=== PATIENT | female | born 1955 | race African-American/Black ===

== ENCOUNTER 2016-11-18 20:25 | Emergency (ER) | payer MEDICAID ==
[~2016-11-18] VITALS: Ht 167.6 cm; Wt 59.0 kg
[~2016-11-18 20:25] MED LIST: LEVO500T15 PO; LOSA100T11 PO; Nifedipine PO; P20 PO
[2016-11-18] MEDS ORDERED: IPRATROPIUM BROMIDE (0.02%) 0.5MG/2.5ML NEB HHN ONE (21:00)
[2016-11-18] MEDS ORDERED: ALBUTEROL 2MG/5ML ORAL SYR PO ONE (21:00)
[2016-11-18] MEDS ORDERED: ALBUTEROL (0.5%) 2.5MG/0.5ML NEB HHN ONE (21:12)
[2016-11-19] MEDS ORDERED: ALBUTEROL (0.083%) 2.5MG/3ML NEB HHN ONE (00:30)
[2016-11-19] MEDS ORDERED: IPRATROPIUM/ALBUTEROL 0.5-3(2.5)MG/3ML NEB HHN ONE (09:15)
[2016-11-19 10:43] VITALS: BP 142/87
== END 2016-11-19 10:51 | disposition home or self-care (01) ==
LOC: ER 20:25
DX: J45.901 Unspecified asthma with (acute) exacerbation (principal); J18.9 Pneumonia, unspecified organism; J44.9 Chronic obstructive pulmonary disease, unspecified
CPT/HCPCS: 94640; 99284; J7611; Z7610; J7620

== ENCOUNTER 2017-10-31 11:33 | Emergency (ER) | payer SELFPAY ==
[~2017-10-31] VITALS: Ht 162.6 cm; Wt 55.0 kg
[~2017-10-31 11:33] MED LIST changes: -LEVO500T15 PO; +LEVO500T2 PO; -LOSA100T11 PO; +LOSA100T3 PO
[2017-10-31] MEDS ORDERED: ALBUTEROL (0.083%) 2.5MG/3ML NEB HHN STA (11:54)
[2017-10-31] MEDS ORDERED: IPRATROPIUM BROMIDE (0.02%) 0.5MG/2.5ML NEB HHN STA (11:54)
[2017-10-31] MEDS ORDERED: PREDNISONE 20MG TABLET PO STA (11:54)
[2017-10-31 16:04] VITALS: BP 137/88
== END 2017-10-31 16:16 | disposition home or self-care (01) ==
LOC: ER 11:33
DX: J44.1 Chronic obstructive pulmonary disease with (acute) exacerbation (principal)
CPT/HCPCS: 71045; 99283; J7512; Z7610

== ENCOUNTER 2018-09-04 19:12 | Inpatient (IN) | payer MEDICAID, OTHER ==
[~2018-09-04] VITALS: Ht 162.6 cm; Wt 69.4 kg
[2018-09-04] MEDS ORDERED: ALBUTEROL (0.083%) 2.5MG/3ML NEB HHN STA (19:17)
[2018-09-04] MEDS ORDERED: METHYLPREDNISOLONE SOD SUCC 125 MG/2 ML VIAL IV STA (19:17)
[2018-09-04 20:29] LABS: BASOPHILS % 0.6 % (0.0-2.0); EOSINOPHILS % 0.4 % (0.0-5.0); HEMATOCRIT. 52.4 % (36.0-48.0); HEMOGLOBIN. 16.8 g/dL (12.0-16.0); MEAN CORPUSCULAR HEMOGLOBIN 31.6 pg (28.0-32.0); MEAN CORPUSCULAR VOLUME 98.5 fL (81.0-99.0); MONOCYTES % 5.9 % (2.0-8.0); NEUTROPHILS % 86.1 % (40.0-76.0); RED BLOOD CELL COUNT 5.32 mill/uL (4.2-5.4); RED CELL DISTRIBUTION WIDTH 14.9 % (11.6-14.6)
[2018-09-04 20:36] LABS: CHLORIDE 102 mEq/L (98-107)
[2018-09-04 20:40] LABS: PROTHROMBIN TIME 9.8 sec (9.1-11.1)
[2018-09-04] MEDS ORDERED: LORAZEPAM 2MG/ML CPJ IV PRN (21:45)
[2018-09-04] MEDS ORDERED: GUAIFENESIN 200MG/10ML SUGAR FREE UDC PO PRN (21:45)
[2018-09-04] MEDS ORDERED: CLONIDINE 0.1MG TABLET PO PRN (21:45)
[2018-09-04] MEDS ORDERED: ACETAMINOPHEN 325MG TABLET PO PRN (21:45)
[2018-09-04] MEDS ORDERED: DOCUSATE SODIUM 100MG CAPSULE PO PRN (21:45)
[2018-09-04] MEDS ORDERED: MAGNESIUM/ALUMINUM HYDROXIDE/SIMETHICONE 30ML UDC PO PRN (21:45)
[2018-09-04] MEDS ORDERED: ONDANSETRON HCL 4MG/2ML INJ IV PRN (21:45)
[2018-09-04] MEDS ORDERED: HYDROCODONE/ACETAMINOPHEN 10/325MG TABLET PO PRN (21:45)
[2018-09-04] MEDS ORDERED: IPRATROPIUM/ALBUTEROL 0.5-3(2.5)MG/3ML NEB INH PRN (21:45)
[2018-09-04] MEDS ORDERED: DIPHENHYDRAMINE 50MG/ML VIAL IV PRN (21:45)
[2018-09-04 23:00] VITALS: BP 156/79
[2018-09-04] MEDS ORDERED: HYDROMORPHONE HCL/PF 2MG/ML CPJ IV PRN (23:07)
[2018-09-04] MEDS ORDERED: NA PHOS,M-B/NA PHOS,DI-BA ENEMA 118ML PR PRN (23:07)
[2018-09-04] MEDS ORDERED: HYDRALAZINE 20MG/ML VIAL IV PRN (23:08)
[2018-09-04 23:55] LABS: CREATINE KINASE 372 IU/L (26-192)
[2018-09-04 23:56] LABS: CREATINE KINASE MB FRACTION 9.3 ng/mL (0.5-3.6)
[2018-09-05] VITALS (9 sets, daily range): BP systolic 146–184; BP diastolic 89–118
[2018-09-05] MEDS: METHYLPREDNISOLONE SOD SUCC 125 MG/2 ML VIAL IV SCH ×3 (06:18→13:09)
[2018-09-05 09:48] LABS: HEMATOCRIT. 42.3 % (36.0-48.0); HEMOGLOBIN. 13.5 g/dL (12.0-16.0); MEAN CORPUSCULAR HEMOGLOBIN 31.3 pg (28.0-32.0); MEAN CORPUSCULAR VOLUME 98.1 fL (81.0-99.0); RED BLOOD CELL COUNT 4.31 mill/uL (4.2-5.4); RED CELL DISTRIBUTION WIDTH 14.8 % (11.6-14.6)
[2018-09-05 09:51] LABS: CHLORIDE 105 mEq/L (98-107)
[2018-09-05 10:02] LABS: CREATINE KINASE 267 IU/L (26-192); LDL CHOLESTEROL 78 mg/dL (5-100)
[2018-09-05 10:03] LABS: HDL CHOLESTEROL 90 mg/dL (40-59); T4 FREE 1.11 ng/dL (0.76-1.46)
[2018-09-05] MEDS: ASPIRIN 81MG EC TABLET PO SCH (10:33)
[2018-09-05] MEDS: ENOXAPARIN 40MG/0.4ML SYR SUBCUT SCH (10:34)
[2018-09-05 11:01] LABS: PLATELET ESTIMATE SLIGHTLY DECREASED
[2018-09-05 11:02] LABS: PLATELET 122 x1000/uL (130-400)
[2018-09-05] MEDS: NICOTINE 14MG PATCH TD SCH (17:22)
[2018-09-05] MEDS: IPRATROPIUM/ALBUTEROL 0.5-3(2.5)MG/3ML NEB HHN SCH (20:55)
[2018-09-05] MEDS: GUAIFENESIN 600MG ER TABLET PO SCH (20:59)
[2018-09-05] MEDS: METHYLPREDNISOLONE SOD SUCC 40 MG/ML VIAL IV SCH (20:59)
[2018-09-05] MEDS: SODIUM CHLORIDE 0.9% INJ 3ML FLUSH IVF SCH (23:53)
[2018-09-06] VITALS: BP 147/92
[2018-09-06] MEDS: IPRATROPIUM/ALBUTEROL 0.5-3(2.5)MG/3ML NEB HHN SCH (01:40)
[2018-09-06 04:00] VITALS: BP 153/96
[2018-09-06] MEDS: METHYLPREDNISOLONE SOD SUCC 40 MG/ML VIAL IV SCH ×2 (06:00→14:00)
[2018-09-06] MEDS: SODIUM CHLORIDE 0.9% INJ 3ML FLUSH IVF SCH ×2 (06:00→14:00)
[2018-09-06 08:00] VITALS: BP 146/71
[2018-09-06 08:49] LABS: CLARITY URINE TURBID (CLEAR); COLOR URINE YELLOW (YELLOW); KETONES URINE NEGATIVE (NEGATIVE); LEUKOCYTE ESTERASE URINE 3+ (NEGATIVE); NITRITE URINE POSITIVE (NEGATIVE); OCCULT BLOOD URINE 2+ (NEGATIVE); PH URINE 7.5 (4.5-8.0); PROTEIN URINE 2+ (NEGATIVE); SPECIFIC GRAVITY URINE 1.026 (1.005-1.030); UROBILINOGEN URINE 0.2 E.U./dL (0.2-1.0)
[2018-09-06] MEDS: ASPIRIN 81MG EC TABLET PO SCH (09:13)
[2018-09-06] MEDS: GUAIFENESIN 600MG ER TABLET PO SCH (09:13)
[2018-09-06] MEDS: ENOXAPARIN 40MG/0.4ML SYR SUBCUT SCH (09:14)
[2018-09-06] MEDS: NICOTINE 14MG PATCH TD SCH (09:14)
[2018-09-06 09:41] LABS: *AMPHETAMINES SCREEN URINE NEGATIVE (NEGATIVE); *BENZODIAZEPINES SCREEN URINE NEGATIVE (NEGATIVE)
[2018-09-06 09:45] LABS: *COCAINE SCREEN URINE PRESUMTIVE POSITIVE (NEGATIVE); CANNABINOID URINE SCREEN NEGATIVE (NEGATIVE); OPIATES URINE SCREEN NEGATIVE (NEGATIVE)
[2018-09-06 09:49] LABS: *BARBITURATES SCREEN URINE NEGATIVE (NEGATIVE); METHADONE URINE SCREEN NEGATIVE (NEGATIVE); PHENCYCLIDINE URINE SCREEN NEGATIVE (NEGATIVE)
[2018-09-06 12:00] VITALS: BP 143/89
== END 2018-09-06 16:35 | disposition home or self-care (01) | DRG 140 ==
LOC: ER 19:12 → 7WST 21:12 → EDBEDREQ 21:14 → ENRESERV 21:50
PROVIDERS: ADMIT Internal Medicine; ATTEND Internal Medicine
PROC: 5A09357 Assistance with Respiratory Ventilation, Less than 24 Consecutive Hours, Continuous Positive Airway Pressure (ICD-10-PCS; principal; 2018-09-04)
DX: J44.1 Chronic obstructive pulmonary disease with (acute) exacerbation (principal); J96.00 Acute respiratory failure, unspecified whether with hypoxia or hypercapnia; I11.9 Hypertensive heart disease without heart failure; F14.90 Cocaine use, unspecified, uncomplicated; F17.210 Nicotine dependence, cigarettes, uncomplicated; J45.901 Unspecified asthma with (acute) exacerbation; N39.0 Urinary tract infection, site not specified; Z98.2 Presence of cerebrospinal fluid drainage device; Z79.2 Long term (current) use of antibiotics; Z79.899 Other long term (current) drug therapy; Z71.6 Tobacco abuse counseling; Z59.0 Homelessness
CPT/HCPCS: 36415; 71045; 80061; 80305; 82550; 82553; 83880; 84439; 84443; 84484; 87077; 87186; 93005; 93970; 94640; 94660; 96374; 99291; J1650; J2920; J2930; J7611; J7620

== ENCOUNTER 2018-09-20 05:55 | Inpatient (IN) | payer OTHER, MEDICAID ==
[~2018-09-20] VITALS: Ht 165.1 cm; Wt 56.7 kg
[~2018-09-20 05:55] MED LIST changes: -LEVO500T2 PO
[2018-09-20] MEDS ORDERED: IPRATROPIUM BROMIDE (0.02%) 0.5MG/2.5ML NEB HHN STA (06:52)
[2018-09-20] MEDS ORDERED: ALBUTEROL (0.083%) 2.5MG/3ML NEB HHN STA (06:52)
[2018-09-20] MEDS ORDERED: METHYLPREDNISOLONE SOD SUCC 125 MG/2 ML VIAL IV STA (06:52)
[2018-09-20 07:23] LABS: BASOPHILS % 0.4 % (0.0-2.0); EOSINOPHILS % 0.3 % (0.0-5.0); HEMATOCRIT. 44.2 % (36.0-48.0); LYMPHOCYTES % 10.3 % (20.0-50.0); MEAN CORPUSCULAR VOLUME 97.9 fL (81.0-99.0); MEAN PLATELET VOLUME 10.9 fl (7.4-10.4); MONOCYTES % 6.2 % (2.0-8.0); NEUTROPHILS % 82.8 % (40.0-76.0); PLATELET 147 x1000/uL (130-400); RED BLOOD CELL COUNT 4.52 mill/uL (4.2-5.4); RED CELL DISTRIBUTION WIDTH 14.4 % (11.6-14.6)
[2018-09-20 07:25] LABS: CHLORIDE 103 mEq/L (98-107)
[2018-09-20 09:12] LABS: BG BASE EXCESS 13.7 mmol/L (-2.0-2.0); BG CARBOXYHEMOGLOBIN 0.9 % (0.5-1.5); BG DEOXYHEMOGLOBIN 13.4 % (0.0-5.0); BG HCO3 ACT 47.5 mmol/L (22.0-26.0); BG METHEMOGLOBIN 0.3 % (0.0-1.5); BG OXYGEN SATURATION 86.4 % (92.0-98.5); BG OXYHEMOGLOBIN 85.4 % (94.0-97.0); BG PCO2 118.7 mmHg (35.0-45.0); BG PO2 63.4 mmHg (75.0-100.0); BG SAMPLE SITE RIGHT RADIAL; BG TOTAL HEMOGLOBIN 15.1 g/dL (12.0-18.0)
[2018-09-20 09:20] LABS: CLARITY URINE CLOUDY (CLEAR); COLOR URINE YELLOW (YELLOW); KETONES URINE NEGATIVE (NEGATIVE); LEUKOCYTE ESTERASE URINE 2+ (NEGATIVE); NITRITE URINE NEGATIVE (NEGATIVE); OCCULT BLOOD URINE 2+ (NEGATIVE); PROTEIN URINE 2+ (NEGATIVE); SPECIFIC GRAVITY URINE 1.016 (1.005-1.030); UROBILINOGEN URINE 0.2 E.U./dL (0.2-1.0)
[2018-09-20] MEDS ORDERED: LEVOFLOXACIN 750MG PREMIX 150 ML IV ONE (09:45)
[2018-09-20] MEDS ORDERED: IPRATROPIUM/ALBUTEROL 0.5-3(2.5)MG/3ML NEB HHN PRN (10:45)
[2018-09-20 11:06] LABS: BG BASE EXCESS 4.4 mmol/L (-2.0-2.0); BG BILEVEL POS AIRWAY PRESSURE 18/5; BG CARBOXYHEMOGLOBIN 0.8 % (0.5-1.5); BG DEOXYHEMOGLOBIN 2.3 % (0.0-5.0); BG FRACTION INSPIRED OXYGEN 40; BG HCO3 ACT 33.9 mmol/L (22.0-26.0); BG METHEMOGLOBIN 0.4 % (0.0-1.5); BG OXYGEN SATURATION 97.7 % (92.0-98.5); BG OXYHEMOGLOBIN 96.5 % (94.0-97.0); BG PCO2 75.7 mmHg (35.0-45.0); BG PH 7.269 (7.350-7.450); BG PO2 120.3 mmHg (75.0-100.0); BG SAMPLE SITE RIGHT RADIAL; BG VENT MODE MASK - BIPAP
[2018-09-20] MEDS ORDERED: ONDANSETRON HCL 4MG/2ML INJ IV PRN (12:30)
[2018-09-20] MEDS ORDERED: LORAZEPAM 0.5MG TABLET PO PRN (12:30)
[2018-09-20] MEDS ORDERED: MAGNESIUM/ALUMINUM HYDROXIDE/SIMETHICONE 30ML UDC PO PRN (12:30)
[2018-09-20] MEDS ORDERED: DOCUSATE SODIUM 100MG CAPSULE PO PRN (12:30)
[2018-09-20] MEDS ORDERED: NITROGLYCERIN 0.4MG TABLET SL SL PRN (12:30)
[2018-09-20] MEDS ORDERED: KETOROLAC 15MG/ML VIAL IV PRN (12:30)
[2018-09-20] MEDS ORDERED: NA PHOS,M-B/NA PHOS,DI-BA ENEMA 118ML PR PRN (12:30)
[2018-09-20] MEDS ORDERED: ETOMIDATE 2MG/ML 10ML VIAL IV ONE (13:56)
[2018-09-20] MEDS ORDERED: SUCCINYLCHOLINE CHLORIDE 200MG/10ML IV ONE ×2 (13:56→14:00)
[2018-09-20] MEDS ORDERED: PROPOFOL 10MG/ML 100ML 100 ML IV ONE (14:00)
[2018-09-20 16:13] LABS: BG BASE EXCESS 5.9 mmol/L (-2.0-2.0); BG CARBOXYHEMOGLOBIN 0.3 % (0.5-1.5); BG DEOXYHEMOGLOBIN 0.5 % (0.0-5.0); BG HCO3 ACT 32.3 mmol/L (22.0-26.0); BG METHEMOGLOBIN 0.3 % (0.0-1.5); BG OXYGEN SATURATION 99.5 % (92.0-98.5); BG OXYHEMOGLOBIN 98.9 % (94.0-97.0); BG PCO2 53.8 mmHg (35.0-45.0); BG PH 7.396 (7.350-7.450); BG PO2 299.9 mmHg (75.0-100.0); BG SAMPLE SITE RIGHT BRACHIAL; BG TIDAL VOLUME(mL) 500 mL; BG TOTAL HEMOGLOBIN 13.9 g/dL (12.0-18.0); BG VENT MODE VENT - A/C; BG VENT RATE 18 set
[2018-09-20] MEDS ORDERED: FENTANYL CITRATE/PF 500 MCG in SODIUM CHLORIDE 0.9% 40 ML IV PRN (16:15)
[2018-09-20] MEDS: FENTANYL CITRATE/PF 500 MCG in SODIUM CHLORIDE 0.9% 40 ML IV PRN (17:00)
[2018-09-20 19:05] LABS: *AMPHETAMINES SCREEN URINE NEGATIVE (NEGATIVE); *BARBITURATES SCREEN URINE NEGATIVE (NEGATIVE); *BENZODIAZEPINES SCREEN URINE NEGATIVE (NEGATIVE); *COCAINE SCREEN URINE PRESUMTIVE POSITIVE (NEGATIVE); CANNABINOID URINE SCREEN NEGATIVE (NEGATIVE); METHADONE URINE SCREEN NEGATIVE (NEGATIVE); OPIATES URINE SCREEN NEGATIVE (NEGATIVE); PHENCYCLIDINE URINE SCREEN NEGATIVE (NEGATIVE)
[2018-09-20 20:00] VITALS: BP_SYST 153; BP_SYST 168; BP_DIAS 109
[2018-09-20] MEDS: IPRATROPIUM/ALBUTEROL 0.5-3(2.5)MG/3ML NEB HHN SCH (20:06)
[2018-09-20] MEDS: METHYLPREDNISOLONE SOD SUCC 125 MG/2 ML VIAL IV SCH (20:26)
[2018-09-20] MEDS: NICOTINE 14MG PATCH TD SCH (20:26)
[2018-09-20] MEDS: GUAIFENESIN/DM 600MG/30MG ER TAB 12HR PO SCH (20:27)
[2018-09-20] MEDS: ENOXAPARIN 40MG/0.4ML SYR SUBCUT SCH (20:27)
[2018-09-20] MEDS: DILTIAZEM HCL 60MG TABLET PO SCH (20:27)
[2018-09-20 21:00] VITALS: BP 150/99
[2018-09-20] MEDS ORDERED: LEVOFLOXACIN 500MG PREMIX 100 ML IV SCH (21:00)
[2018-09-20] MEDS ORDERED: ZOLPIDEM TARTRATE 5MG TABLET PO PRN (21:00)
[2018-09-20] MEDS: ACETAMINOPHEN 325MG TABLET PO PRN (21:22)
[2018-09-20 22:00] VITALS: BP 138/91
[2018-09-20] MEDS: PROPOFOL 10MG/ML 100ML 100 ML IV PRN (22:02)
[2018-09-20 23:00] VITALS: BP 155/101
[2018-09-20 23:30] VITALS: BP 157/104
[2018-09-21] VITALS (45 sets, daily range): BP systolic 104–178; BP diastolic 57–121
[2018-09-21] MEDS: IPRATROPIUM/ALBUTEROL 0.5-3(2.5)MG/3ML NEB HHN SCH ×6 (00:16→20:18)
[2018-09-21] MEDS: DILTIAZEM HCL 60MG TABLET PO SCH ×4 (01:34→20:00)
[2018-09-21] MEDS: ACETAMINOPHEN 325MG TABLET PO PRN (01:34)
[2018-09-21] MEDS: METHYLPREDNISOLONE SOD SUCC 125 MG/2 ML VIAL IV SCH ×4 (01:34→20:43)
[2018-09-21] MEDS: GUAIFENESIN 600MG ER TABLET PO SCH ×3 (01:47→20:43)
[2018-09-21] MEDS: PROPOFOL 10MG/ML 100ML 100 ML IV PRN ×4 (04:27→20:45)
[2018-09-21] MEDS: NICOTINE 14MG PATCH TD SCH ×2 (08:14→20:43)
[2018-09-21] MEDS: GUAIFENESIN/DM 600MG/30MG ER TAB 12HR PO SCH ×2 (08:15→20:42)
[2018-09-21] MEDS: ASPIRIN 325MG EC TABLET PO SCH (08:15)
[2018-09-21 08:31] LABS: BG BASE EXCESS 10.1 mmol/L (-2.0-2.0); BG CARBOXYHEMOGLOBIN 0.3 % (0.5-1.5); BG DEOXYHEMOGLOBIN 1.7 % (0.0-5.0); BG FRACTION INSPIRED OXYGEN 40; BG HCO3 ACT 34.3 mmol/L (22.0-26.0); BG METHEMOGLOBIN 0.3 % (0.0-1.5); BG OXYGEN SATURATION 98.3 % (92.0-98.5); BG OXYHEMOGLOBIN 97.7 % (94.0-97.0); BG PCO2 44.3 mmHg (35.0-45.0); BG PH 7.507 (7.350-7.450); BG PO2 112.6 mmHg (75.0-100.0); BG SAMPLE SITE RIGHT RADIAL; BG TIDAL VOLUME(mL) 500 mL; BG TOTAL HEMOGLOBIN 13.5 g/dL (12.0-18.0); BG VENT MODE VENT - A/C; BG VENT RATE 16 set
[2018-09-21] MEDS: FENTANYL CITRATE/PF 500 MCG in SODIUM CHLORIDE 0.9% 40 ML IV PRN (12:33)
[2018-09-21] MEDS: PANTOPRAZOLE SODIUM 40 MG/VIAL IV SCH (13:05)
[2018-09-21] MEDS: LISINOPRIL 20MG TABLET PO SCH (13:06)
[2018-09-21] MEDS: ENOXAPARIN 40MG/0.4ML SYR SUBCUT SCH (20:44)
[2018-09-21] MEDS ORDERED: LEVOFLOXACIN 500MG PREMIX 100 ML IV SCH (22:00)
[2018-09-22] VITALS (41 sets, daily range): BP systolic 105–156; BP diastolic 66–101
[2018-09-22] MEDS: IPRATROPIUM/ALBUTEROL 0.5-3(2.5)MG/3ML NEB HHN SCH ×6 (00:09→21:10)
[2018-09-22] MEDS: DILTIAZEM HCL 60MG TABLET PO SCH ×4 (02:42→20:47)
[2018-09-22] MEDS: METHYLPREDNISOLONE SOD SUCC 125 MG/2 ML VIAL IV SCH ×4 (02:43→20:46)
[2018-09-22] MEDS: PROPOFOL 10MG/ML 100ML 100 ML IV PRN ×3 (04:03→23:26)
[2018-09-22 07:56] LABS: BG BASE EXCESS 9.7 mmol/L (-2.0-2.0); BG CARBOXYHEMOGLOBIN 0.2 % (0.5-1.5); BG DEOXYHEMOGLOBIN 2.3 % (0.0-5.0); BG FRACTION INSPIRED OXYGEN 40; BG HCO3 ACT 35.3 mmol/L (22.0-26.0); BG METHEMOGLOBIN 0.1 % (0.0-1.5); BG OXYGEN SATURATION 97.7 % (92.0-98.5); BG OXYHEMOGLOBIN 97.4 % (94.0-97.0); BG PCO2 51.9 mmHg (35.0-45.0); BG PH 7.451 (7.350-7.450); BG PO2 102.6 mmHg (75.0-100.0); BG SAMPLE SITE RIGHT RADIAL; BG TIDAL VOLUME(mL) 500 mL; BG TOTAL HEMOGLOBIN 13.3 g/dL (12.0-18.0); BG VENT MODE VENT - A/C; BG VENT RATE 12 set
[2018-09-22 07:57] LABS: HEMATOCRIT. 39.6 % (36.0-48.0); HEMOGLOBIN. 12.6 g/dL (12.0-16.0); MEAN CORPUSCULAR HEMOGLOBIN 30.9 pg (28.0-32.0); MEAN CORPUSCULAR VOLUME 97.4 fL (81.0-99.0); MEAN PLATELET VOLUME 11.1 fl (7.4-10.4); PLATELET 156 x1000/uL (130-400); RED BLOOD CELL COUNT 4.07 mill/uL (4.2-5.4); RED CELL DISTRIBUTION WIDTH 14.6 % (11.6-14.6)
[2018-09-22] MEDS: PANTOPRAZOLE SODIUM 40 MG/VIAL IV SCH (08:14)
[2018-09-22] MEDS: GUAIFENESIN 600MG ER TABLET PO SCH ×2 (08:14→21:00)
[2018-09-22] MEDS: LISINOPRIL 20MG TABLET PO SCH (08:14)
[2018-09-22] MEDS: ASPIRIN 325MG EC TABLET PO SCH (08:14)
[2018-09-22] MEDS: GUAIFENESIN/DM 600MG/30MG ER TAB 12HR PO SCH ×2 (08:15→21:00)
[2018-09-22 10:09] LABS: PLATELET ESTIMATE NORMAL
[2018-09-22 13:52] LABS: BG BASE EXCESS 6.1 mmol/L (-2.0-2.0); BG CARBOXYHEMOGLOBIN 0.4 % (0.5-1.5); BG DEOXYHEMOGLOBIN 3.2 % (0.0-5.0); BG FRACTION INSPIRED OXYGEN 40; BG HCO3 ACT 32.3 mmol/L (22.0-26.0); BG METHEMOGLOBIN 0.4 % (0.0-1.5); BG OXYGEN SATURATION 96.8 % (92.0-98.5); BG PCO2 53.1 mmHg (35.0-45.0); BG PH 7.402 (7.350-7.450); BG PO2 95.1 mmHg (75.0-100.0); BG PRESSURE SUPPORT 14; BG SAMPLE SITE RIGHT RADIAL; BG TIDAL VOLUME(mL) 500 mL; BG TOTAL HEMOGLOBIN 13.3 g/dL (12.0-18.0); BG VENT MODE VENT - SIMV; BG VENT RATE 8 set
[2018-09-22] MEDS: ENOXAPARIN 30MG/0.3ML SYR SUBCUT SCH (20:47)
[2018-09-22] MEDS ORDERED: LEVOFLOXACIN 250MG PREMIX 50 ML IV SCH (22:00)
[2018-09-23] VITALS (38 sets, daily range): BP systolic 107–164; BP diastolic 57–115
[2018-09-23] MEDS: IPRATROPIUM/ALBUTEROL 0.5-3(2.5)MG/3ML NEB HHN SCH ×6 (00:23→20:22)
[2018-09-23] MEDS: METHYLPREDNISOLONE SOD SUCC 125 MG/2 ML VIAL IV SCH ×4 (02:54→21:19)
[2018-09-23] MEDS: DILTIAZEM HCL 60MG TABLET PO SCH ×4 (02:54→21:19)
[2018-09-23 07:01] LABS: BG BASE EXCESS 5.8 mmol/L (-2.0-2.0); BG CARBOXYHEMOGLOBIN 0.2 % (0.5-1.5); BG DEOXYHEMOGLOBIN 3.2 % (0.0-5.0); BG HCO3 ACT 32.7 mmol/L (22.0-26.0); BG METHEMOGLOBIN 0.4 % (0.0-1.5); BG OXYGEN SATURATION 96.8 % (92.0-98.5); BG OXYHEMOGLOBIN 96.2 % (94.0-97.0); BG PCO2 57.9 mmHg (35.0-45.0); BG PO2 95.1 mmHg (75.0-100.0); BG SAMPLE SITE RIGHT RADIAL; BG TIDAL VOLUME(mL) 500 mL; BG TOTAL HEMOGLOBIN 13.5 g/dL (12.0-18.0); BG VENT MODE VENT - SIMV; BG VENT RATE 8 set
[2018-09-23 09:17] LABS: HEMATOCRIT. 41.2 % (36.0-48.0); HEMOGLOBIN. 13.2 g/dL (12.0-16.0); MEAN CORPUSCULAR HEMOGLOBIN 31.2 pg (28.0-32.0); MEAN CORPUSCULAR VOLUME 97.6 fL (81.0-99.0); MEAN PLATELET VOLUME 10.2 fl (7.4-10.4); PLATELET 137 x1000/uL (130-400); RED BLOOD CELL COUNT 4.23 mill/uL (4.2-5.4); RED CELL DISTRIBUTION WIDTH 14.8 % (11.6-14.6)
[2018-09-23] MEDS: PANTOPRAZOLE SODIUM 40 MG/VIAL IV SCH (09:56)
[2018-09-23] MEDS: NICOTINE 14MG PATCH TD SCH (09:56)
[2018-09-23] MEDS: AMLODIPINE 5MG TABLET PO SCH (09:57)
[2018-09-23] MEDS: PROPOFOL 10MG/ML 100ML 100 ML IV PRN ×2 (10:10→18:37)
[2018-09-23] MEDS ORDERED: LIDOCAINE HCL/PF 1% 2ML VIAL ONE (10:12)
[2018-09-23] MEDS: ASPIRIN 325MG TABLET PO SCH (10:12)
[2018-09-23 11:40] LABS: PLATELET ESTIMATE NORMAL
[2018-09-23 12:08] LABS: CREATINE KINASE MB FRACTION 1.7 ng/mL (0.5-3.6)
[2018-09-23] MEDS: SODIUM CHLORIDE 0.9% 1,000 ML IV SCH ×2 (12:30→23:56)
[2018-09-23] MEDS: GUAIFENESIN-DM 200MG-20MG/10ML UDC NG SCH ×2 (14:00→22:00)
[2018-09-23 14:09] LABS: BG BASE EXCESS 8.6 mmol/L (-2.0-2.0); BG CARBOXYHEMOGLOBIN 0.1 % (0.5-1.5); BG DEOXYHEMOGLOBIN 3.7 % (0.0-5.0); BG FRACTION INSPIRED OXYGEN 40; BG HCO3 ACT 35.4 mmol/L (22.0-26.0); BG METHEMOGLOBIN 0.4 % (0.0-1.5); BG OXYGEN SATURATION 96.3 % (92.0-98.5); BG OXYHEMOGLOBIN 95.8 % (94.0-97.0); BG PCO2 58.5 mmHg (35.0-45.0); BG PO2 92.6 mmHg (75.0-100.0); BG SAMPLE SITE RIGHT RADIAL; BG TIDAL VOLUME(mL) 500 mL; BG TOTAL HEMOGLOBIN 13.4 g/dL (12.0-18.0); BG VENT MODE VENT - SIMV; BG VENT RATE 6 set
[2018-09-23] MEDS: CEFAZOLIN 1000MG PREMIX 50 ML IV SCH (17:25)
[2018-09-23] MEDS: ENOXAPARIN 30MG/0.3ML SYR SUBCUT SCH (21:19)
[2018-09-23] MEDS: GUAIFENESIN 200MG/10ML SUGAR FREE UDC PO PRN ×4 (21:54→22:04)
[2018-09-24] VITALS (42 sets, daily range): BP systolic 108–163; BP diastolic 75–108
[2018-09-24] MEDS: IPRATROPIUM/ALBUTEROL 0.5-3(2.5)MG/3ML NEB HHN SCH ×6 (00:24→20:54)
[2018-09-24] MEDS: DILTIAZEM HCL 60MG TABLET PO SCH ×4 (02:15→19:37)
[2018-09-24] MEDS: PROPOFOL 10MG/ML 100ML 100 ML IV PRN ×3 (03:47→18:38)
[2018-09-24] MEDS: METHYLPREDNISOLONE SOD SUCC 125 MG/2 ML VIAL IV SCH ×2 (05:45→09:48)
[2018-09-24] MEDS: GUAIFENESIN-DM 200MG-20MG/10ML UDC NG SCH ×3 (05:56→21:17)
[2018-09-24] MEDS: NICOTINE 14MG PATCH TD SCH (08:09)
[2018-09-24] MEDS: CEFAZOLIN 1000MG PREMIX 50 ML IV SCH (08:09)
[2018-09-24] MEDS: ASPIRIN 325MG TABLET PO SCH (08:10)
[2018-09-24] MEDS: PANTOPRAZOLE SODIUM 40 MG/VIAL IV SCH (08:10)
[2018-09-24 08:31] LABS: BG BASE EXCESS 9.7 mmol/L (-2.0-2.0); BG CARBOXYHEMOGLOBIN 0.4 % (0.5-1.5); BG DEOXYHEMOGLOBIN 3.2 % (0.0-5.0); BG FRACTION INSPIRED OXYGEN 40; BG HCO3 ACT 38.2 mmol/L (22.0-26.0); BG METHEMOGLOBIN 0.1 % (0.0-1.5); BG OXYGEN SATURATION 96.8 % (92.0-98.5); BG OXYHEMOGLOBIN 96.3 % (94.0-97.0); BG PCO2 71.6 mmHg (35.0-45.0); BG PH 7.345 (7.350-7.450); BG PO2 95.1 mmHg (75.0-100.0); BG PRESSURE SUPPORT 10; BG SAMPLE SITE RIGHT RADIAL; BG TIDAL VOLUME(mL) 500 mL; BG TOTAL HEMOGLOBIN 13.4 g/dL (12.0-18.0); BG VENT MODE VENT - SIMV; BG VENT RATE 8 set
[2018-09-24 09:27] LABS: HEMATOCRIT 39.7 % (36.0-48.0); HEMOGLOBIN 12.6 g/dL (12.0-16.0); MEAN CORPUSCULAR HEMOGLOBIN 31.4 pg (28.0-32.0); PLATELET 161 x1000/uL (130-400); RED BLOOD CELL COUNT 4.01 mill/uL (4.2-5.4)
[2018-09-24] MEDS: AMLODIPINE 5MG TABLET PO SCH (09:48)
[2018-09-24] MEDS: SODIUM CHLORIDE 0.9% 1,000 ML IV SCH (13:46)
[2018-09-24] MEDS: METHYLPREDNISOLONE SOD SUCC 40 MG/ML VIAL IV SCH (17:20)
[2018-09-24] MEDS: ENOXAPARIN 30MG/0.3ML SYR SUBCUT SCH (19:37)
[2018-09-25] VITALS (34 sets, daily range): BP systolic 125–182; BP diastolic 80–117
[2018-09-25] MEDS: SODIUM CHLORIDE 0.9% 1,000 ML IV SCH ×2 (00:02→17:40)
[2018-09-25] MEDS: IPRATROPIUM/ALBUTEROL 0.5-3(2.5)MG/3ML NEB HHN SCH ×6 (00:03→20:28)
[2018-09-25] MEDS: PROPOFOL 10MG/ML 100ML 100 ML IV PRN (03:15)
[2018-09-25] MEDS: DILTIAZEM HCL 60MG TABLET PO SCH ×4 (03:18→20:49)
[2018-09-25] MEDS: GUAIFENESIN-DM 200MG-20MG/10ML UDC NG SCH ×3 (05:21→20:49)
[2018-09-25 07:20] LABS: BG BASE EXCESS 4.2 mmol/L (-2.0-2.0); BG CARBOXYHEMOGLOBIN 0.6 % (0.5-1.5); BG DEOXYHEMOGLOBIN 3.7 % (0.0-5.0); BG HCO3 ACT 30.8 mmol/L (22.0-26.0); BG METHEMOGLOBIN 0.3 % (0.0-1.5); BG OXYGEN SATURATION 96.3 % (92.0-98.5); BG OXYHEMOGLOBIN 95.4 % (94.0-97.0); BG PCO2 54.8 mmHg (35.0-45.0); BG PH 7.367 (7.350-7.450); BG PO2 88.5 mmHg (75.0-100.0); BG SAMPLE SITE RIGHT RADIAL; BG TIDAL VOLUME(mL) 500 mL; BG TOTAL HEMOGLOBIN 12.9 g/dL (12.0-18.0); BG VENT MODE VENT - A/C; BG VENT RATE 12 set
[2018-09-25 08:56] LABS: HEMATOCRIT 38.7 % (36.0-48.0); MEAN CORPUSCULAR HEMOGLOBIN 30.6 pg (28.0-32.0); MEAN CORPUSCULAR VOLUME 98.8 fL (81.0-99.0); PLATELET 135 x1000/uL (130-400); RED BLOOD CELL COUNT 3.92 mill/uL (4.2-5.4)
[2018-09-25 09:03] LABS: CHLORIDE 114 mEq/L (98-107)
[2018-09-25] MEDS: NICOTINE 14MG PATCH TD SCH (09:18)
[2018-09-25] MEDS: AMLODIPINE 5MG TABLET PO SCH (09:19)
[2018-09-25] MEDS: PANTOPRAZOLE SODIUM 40 MG/VIAL IV SCH (09:19)
[2018-09-25] MEDS: ASPIRIN 325MG TABLET PO SCH (09:19)
[2018-09-25] MEDS: METHYLPREDNISOLONE SOD SUCC 40 MG/ML VIAL IV SCH ×2 (09:19→17:40)
[2018-09-25] MEDS: CEFAZOLIN 1000MG PREMIX 50 ML IV SCH (09:20)
[2018-09-25 12:01] LABS: BG CARBOXYHEMOGLOBIN 0.3 % (0.5-1.5); BG CPAP (cmH2O) 0 cm(H2O); BG DEOXYHEMOGLOBIN 5.4 % (0.0-5.0); BG HCO3 ACT 30.7 mmol/L (22.0-26.0); BG METHEMOGLOBIN 0.3 % (0.0-1.5); BG OXYGEN SATURATION 94.6 % (92.0-98.5); BG PCO2 49.8 mmHg (35.0-45.0); BG PH 7.408 (7.350-7.450); BG SAMPLE SITE RIGHT RADIAL; BG TOTAL HEMOGLOBIN 13.6 g/dL (12.0-18.0); BG VENT MODE VENT - CPAP
[2018-09-25] MEDS ORDERED: RACEPINEPHRINE 2.25% 0.5ML NEB VIAL HHN PRN (12:15)
[2018-09-25] MEDS: CLONIDINE 0.1MG TABLET PO PRN (12:35)
[2018-09-25] MEDS ORDERED: LIDOCAINE HCL/PF 1% 2ML VIAL ONE (15:09)
[2018-09-25] MEDS: HALOPERIDOL LACTATE 5MG/ML VIAL IM PRN (18:08)
[2018-09-25] MEDS: ENOXAPARIN 30MG/0.3ML SYR SUBCUT SCH (20:50)
[2018-09-25] MEDS: NITROGLYCERIN OINT 1GM/INCH UDPKT TD SCH (20:50)
[2018-09-26] VITALS (16 sets, daily range): BP systolic 138–181; BP diastolic 83–114
[2018-09-26] MEDS: IPRATROPIUM/ALBUTEROL 0.5-3(2.5)MG/3ML NEB HHN SCH ×6 (01:23→20:33)
[2018-09-26] MEDS: DILTIAZEM HCL 60MG TABLET PO SCH ×4 (02:03→21:33)
[2018-09-26] MEDS: SODIUM CHLORIDE 0.9% 1,000 ML IV SCH ×2 (05:06→19:38)
[2018-09-26] MEDS: GUAIFENESIN-DM 200MG-20MG/10ML UDC NG SCH ×2 (05:06→14:59)
[2018-09-26] MEDS: HYDRALAZINE 20MG/ML VIAL IV PRN ×2 (06:28→14:29)
[2018-09-26 07:18] LABS: HEMATOCRIT 40.9 % (36.0-48.0); HEMOGLOBIN 12.7 g/dL (12.0-16.0); MEAN CORPUSCULAR HEMOGLOBIN 30.7 pg (28.0-32.0); MEAN CORPUSCULAR VOLUME 98.5 fL (81.0-99.0); PLATELET 119 x1000/uL (130-400); RED BLOOD CELL COUNT 4.15 mill/uL (4.2-5.4)
[2018-09-26 07:27] LABS: CHLORIDE 108 mEq/L (98-107)
[2018-09-26] MEDS: AMLODIPINE 5MG TABLET PO SCH (08:20)
[2018-09-26] MEDS: ASPIRIN 325MG TABLET PO SCH (08:20)
[2018-09-26] MEDS: METHYLPREDNISOLONE SOD SUCC 40 MG/ML VIAL IV SCH (08:21)
[2018-09-26] MEDS: PANTOPRAZOLE SODIUM 40 MG/VIAL IV SCH (08:21)
[2018-09-26] MEDS: NITROGLYCERIN OINT 1GM/INCH UDPKT TD SCH (08:21)
[2018-09-26] MEDS: NICOTINE 14MG PATCH TD SCH (08:22)
[2018-09-26] MEDS: CEFAZOLIN 1000MG PREMIX 50 ML IV SCH ×2 (08:44→21:33)
[2018-09-26] MEDS: HALOPERIDOL LACTATE 5MG/ML VIAL IM PRN (14:28)
[2018-09-26] MEDS: GUAIFENESIN 200MG/10ML SUGAR FREE UDC PO PRN ×3 (14:30→14:58)
[2018-09-26] MEDS: ACETAMINOPHEN 325MG TABLET PO PRN (14:56)
[2018-09-26 16:35] LABS: BG BASE EXCESS 7.1 mmol/L (-2.0-2.0); BG CARBOXYHEMOGLOBIN 0.2 % (0.5-1.5); BG DEOXYHEMOGLOBIN 3.7 % (0.0-5.0); BG FRACTION INSPIRED OXYGEN 34; BG HCO3 ACT 31.4 mmol/L (22.0-26.0); BG METHEMOGLOBIN 0.3 % (0.0-1.5); BG OXYGEN SATURATION 96.3 % (92.0-98.5); BG OXYHEMOGLOBIN 95.8 % (94.0-97.0); BG PCO2 42.7 mmHg (35.0-45.0); BG PH 7.484 (7.350-7.450); BG PO2 81.3 mmHg (75.0-100.0); BG SAMPLE SITE RIGHT RADIAL; BG TOTAL HEMOGLOBIN 14.3 g/dL (12.0-18.0); BG VENT MODE NASAL CANNULA
[2018-09-26] MEDS: ENOXAPARIN 40MG/0.4ML SYR SUBCUT SCH (21:33)
[2018-09-27] VITALS (12 sets, daily range): BP systolic 130–169; BP diastolic 58–105
[2018-09-27] MEDS: DILTIAZEM HCL 60MG TABLET PO SCH ×4 (01:41→20:43)
[2018-09-27] MEDS: GUAIFENESIN-DM 200MG-20MG/10ML UDC NG SCH ×4 (01:42→20:42)
[2018-09-27] MEDS: IPRATROPIUM/ALBUTEROL 0.5-3(2.5)MG/3ML NEB HHN SCH ×6 (01:48→21:39)
[2018-09-27] MEDS: GUAIFENESIN 200MG/10ML SUGAR FREE UDC PO PRN (05:55)
[2018-09-27] MEDS: AMLODIPINE 5MG TABLET PO SCH (08:41)
[2018-09-27] MEDS: NICOTINE 14MG PATCH TD SCH (08:42)
[2018-09-27] MEDS: FAMOTIDINE 20MG TABLET PO SCH ×2 (08:42→17:22)
[2018-09-27] MEDS: PREDNISONE 20MG TABLET PO SCH (08:42)
[2018-09-27] MEDS: ASPIRIN 325MG TABLET PO SCH (08:42)
[2018-09-27] MEDS: NITROGLYCERIN OINT 1GM/INCH UDPKT TD SCH (08:43)
[2018-09-27] MEDS: CEFAZOLIN 1000MG PREMIX 50 ML IV SCH (08:43)
[2018-09-27] MEDS: SODIUM CHLORIDE 0.9% 1,000 ML IV SCH (08:44)
[2018-09-27] MEDS: CEPHALEXIN 250MG CAPSULE PO SCH ×3 (12:35→22:58)
[2018-09-27] MEDS: HALOPERIDOL LACTATE 5MG/ML VIAL IM PRN (20:41)
[2018-09-27] MEDS: ENOXAPARIN 40MG/0.4ML SYR SUBCUT SCH (20:45)
[2018-09-28] VITALS (11 sets, daily range): BP systolic 113–161; BP diastolic 61–105
[2018-09-28] MEDS: CLONIDINE 0.1MG TABLET PO PRN (00:20)
[2018-09-28] MEDS: IPRATROPIUM/ALBUTEROL 0.5-3(2.5)MG/3ML NEB HHN SCH ×6 (01:27→20:53)
[2018-09-28] MEDS: DILTIAZEM HCL 60MG TABLET PO SCH ×4 (01:44→20:45)
[2018-09-28] MEDS: GUAIFENESIN-DM 200MG-20MG/10ML UDC NG SCH ×3 (05:13→20:44)
[2018-09-28] MEDS: CEPHALEXIN 250MG CAPSULE PO SCH ×3 (05:13→17:20)
[2018-09-28] MEDS: HALOPERIDOL LACTATE 5MG/ML VIAL IM PRN ×2 (05:14→23:21)
[2018-09-28] MEDS: ASPIRIN 325MG TABLET PO SCH (08:32)
[2018-09-28] MEDS: AMLODIPINE 5MG TABLET PO SCH (08:32)
[2018-09-28] MEDS: PREDNISONE 20MG TABLET PO SCH (08:33)
[2018-09-28] MEDS: NICOTINE 14MG PATCH TD SCH (08:34)
[2018-09-28] MEDS: NITROGLYCERIN OINT 1GM/INCH UDPKT TD SCH (08:36)
[2018-09-28] MEDS: FAMOTIDINE 20MG TABLET PO SCH ×2 (08:38→17:20)
[2018-09-28] MEDS: ENOXAPARIN 40MG/0.4ML SYR SUBCUT SCH (20:44)
[2018-09-29] VITALS (10 sets, daily range): BP systolic 114–165; BP diastolic 70–106
[2018-09-29] MEDS: DILTIAZEM HCL 60MG TABLET PO SCH ×4 (03:00→21:20)
[2018-09-29] MEDS: CEPHALEXIN 250MG CAPSULE PO SCH ×5 (03:00→23:46)
[2018-09-29] MEDS: IPRATROPIUM/ALBUTEROL 0.5-3(2.5)MG/3ML NEB HHN SCH ×4 (04:54→21:07)
[2018-09-29] MEDS: GUAIFENESIN-DM 200MG-20MG/10ML UDC NG SCH ×3 (05:15→21:19)
[2018-09-29] MEDS: PREDNISONE 20MG TABLET PO SCH (08:34)
[2018-09-29] MEDS: AMLODIPINE 5MG TABLET PO SCH (08:34)
[2018-09-29] MEDS: NICOTINE 14MG PATCH TD SCH (08:34)
[2018-09-29] MEDS: ASPIRIN 325MG TABLET PO SCH (08:35)
[2018-09-29] MEDS: NITROGLYCERIN OINT 1GM/INCH UDPKT TD SCH (08:35)
[2018-09-29] MEDS: FAMOTIDINE 20MG TABLET PO SCH ×2 (08:36→17:18)
[2018-09-29] MEDS: ENOXAPARIN 40MG/0.4ML SYR SUBCUT SCH (21:19)
[2018-09-29] MEDS: HALOPERIDOL LACTATE 5MG/ML VIAL IM PRN (23:16)
[2018-09-30] VITALS: BP 134/88
[2018-09-30] MEDS: IPRATROPIUM/ALBUTEROL 0.5-3(2.5)MG/3ML NEB HHN SCH ×7 (00:45→20:19)
[2018-09-30] MEDS: DILTIAZEM HCL 60MG TABLET PO SCH ×4 (02:00→20:35)
[2018-09-30 04:00] VITALS: BP 117/79
[2018-09-30] MEDS: GUAIFENESIN-DM 200MG-20MG/10ML UDC NG SCH ×3 (05:54→22:00)
[2018-09-30] MEDS: CEPHALEXIN 250MG CAPSULE PO SCH ×3 (05:55→17:09)
[2018-09-30 08:00] VITALS: BP 129/84
[2018-09-30] MEDS: NICOTINE 14MG PATCH TD SCH (09:08)
[2018-09-30] MEDS: FAMOTIDINE 20MG TABLET PO SCH ×2 (09:09→17:09)
[2018-09-30] MEDS: NITROGLYCERIN OINT 1GM/INCH UDPKT TD SCH (09:09)
[2018-09-30] MEDS: ASPIRIN 325MG TABLET PO SCH (09:09)
[2018-09-30] MEDS: AMLODIPINE 5MG TABLET PO SCH (09:09)
[2018-09-30] MEDS: PREDNISONE 20MG TABLET PO SCH (09:09)
[2018-09-30 12:00] VITALS: BP 131/81
[2018-09-30 16:08] VITALS: BP 140/84
[2018-09-30 20:00] VITALS: BP 141/91
[2018-09-30] MEDS: HALOPERIDOL LACTATE 5MG/ML VIAL IM PRN (20:36)
[2018-09-30] MEDS: ENOXAPARIN 40MG/0.4ML SYR SUBCUT SCH (20:36)
[2018-10-01] VITALS (7 sets, daily range): BP systolic 118–155; BP diastolic 75–84
[2018-10-01] MEDS: IPRATROPIUM/ALBUTEROL 0.5-3(2.5)MG/3ML NEB HHN SCH ×6 (00:47→21:53)
[2018-10-01] MEDS: DILTIAZEM HCL 60MG TABLET PO SCH ×4 (03:12→20:45)
[2018-10-01] MEDS: GUAIFENESIN-DM 200MG-20MG/10ML UDC NG SCH ×3 (06:05→21:03)
[2018-10-01] MEDS: CEPHALEXIN 250MG CAPSULE PO SCH ×5 (06:05→23:01)
[2018-10-01] MEDS: NICOTINE 14MG PATCH TD SCH (09:31)
[2018-10-01] MEDS: ASPIRIN 325MG TABLET PO SCH (09:32)
[2018-10-01] MEDS: NITROGLYCERIN OINT 1GM/INCH UDPKT TD SCH (09:32)
[2018-10-01] MEDS: AMLODIPINE 5MG TABLET PO SCH (09:32)
[2018-10-01] MEDS: FAMOTIDINE 20MG TABLET PO SCH ×2 (09:32→18:17)
[2018-10-01] MEDS: PREDNISONE 20MG TABLET PO SCH (09:34)
[2018-10-01] MEDS: ENOXAPARIN 40MG/0.4ML SYR SUBCUT SCH (20:45)
[2018-10-01] MEDS: HALOPERIDOL LACTATE 5MG/ML VIAL IM PRN (22:58)
[2018-10-02] VITALS (7 sets, daily range): BP systolic 128–163; BP diastolic 71–99
[2018-10-02] MEDS: DILTIAZEM HCL 60MG TABLET PO SCH ×4 (02:06→21:07)
[2018-10-02] MEDS: IPRATROPIUM/ALBUTEROL 0.5-3(2.5)MG/3ML NEB HHN SCH ×6 (02:45→20:52)
[2018-10-02] MEDS: GUAIFENESIN-DM 200MG-20MG/10ML UDC NG SCH ×3 (06:26→22:00)
[2018-10-02] MEDS: CEPHALEXIN 250MG CAPSULE PO SCH ×3 (06:27→18:20)
[2018-10-02] MEDS: NITROGLYCERIN OINT 1GM/INCH UDPKT TD SCH (08:45)
[2018-10-02] MEDS: AMLODIPINE 5MG TABLET PO SCH (08:45)
[2018-10-02] MEDS: NICOTINE 14MG PATCH TD SCH (08:45)
[2018-10-02] MEDS: ASPIRIN 325MG TABLET PO SCH (08:45)
[2018-10-02] MEDS: PREDNISONE 20MG TABLET PO SCH (08:46)
[2018-10-02] MEDS: FAMOTIDINE 20MG TABLET PO SCH ×2 (08:46→18:20)
[2018-10-02] MEDS: HALOPERIDOL LACTATE 5MG/ML VIAL IM PRN (19:52)
[2018-10-02] MEDS: GUAIFENESIN 200MG/10ML SUGAR FREE UDC PO PRN ×2 (21:06→21:08)
[2018-10-02] MEDS: ENOXAPARIN 40MG/0.4ML SYR SUBCUT SCH (21:06)
[2018-10-03] MEDS: IPRATROPIUM/ALBUTEROL 0.5-3(2.5)MG/3ML NEB HHN SCH ×6 (00:45→20:40)
[2018-10-03 04:00] VITALS: BP 158/89
[2018-10-03] MEDS: HALOPERIDOL LACTATE 5MG/ML VIAL IM PRN ×2 (04:20→17:56)
[2018-10-03] MEDS: CEPHALEXIN 250MG CAPSULE PO SCH ×5 (04:24→23:04)
[2018-10-03] MEDS: DILTIAZEM HCL 60MG TABLET PO SCH ×4 (04:27→20:45)
[2018-10-03] MEDS: GUAIFENESIN-DM 200MG-20MG/10ML UDC NG SCH ×3 (06:56→22:00)
[2018-10-03 08:00] VITALS: BP 153/95
[2018-10-03] MEDS: AMLODIPINE 5MG TABLET PO SCH (09:41)
[2018-10-03] MEDS: ASPIRIN 325MG TABLET PO SCH (09:41)
[2018-10-03] MEDS: FAMOTIDINE 20MG TABLET PO SCH ×2 (09:41→17:32)
[2018-10-03] MEDS: PREDNISONE 20MG TABLET PO SCH (09:42)
[2018-10-03] MEDS: NITROGLYCERIN OINT 1GM/INCH UDPKT TD SCH (09:42)
[2018-10-03] MEDS: NICOTINE 14MG PATCH TD SCH (09:43)
[2018-10-03 12:00] VITALS: BP 139/82
[2018-10-03] MEDS: GUAIFENESIN 200MG/10ML SUGAR FREE UDC PO PRN ×2 (14:13→14:14)
[2018-10-03 15:15] VITALS: BP 138/80
[2018-10-03 20:00] VITALS: BP 162/102
[2018-10-03] MEDS: ENOXAPARIN 40MG/0.4ML SYR SUBCUT SCH (20:41)
[2018-10-04] VITALS: BP 167/105
[2018-10-04] MEDS: IPRATROPIUM/ALBUTEROL 0.5-3(2.5)MG/3ML NEB HHN SCH ×6 (00:28→20:48)
[2018-10-04] MEDS: DILTIAZEM HCL 60MG TABLET PO SCH ×4 (02:00→20:42)
[2018-10-04] MEDS: HALOPERIDOL LACTATE 5MG/ML VIAL IM PRN (02:02)
[2018-10-04 04:00] VITALS: BP 154/100
[2018-10-04] MEDS: CEPHALEXIN 250MG CAPSULE PO SCH ×2 (05:56→12:00)
[2018-10-04] MEDS: GUAIFENESIN-DM 200MG-20MG/10ML UDC NG SCH ×3 (05:57→21:07)
[2018-10-04 06:43] LABS: CHLORIDE 104 mEq/L (98-107)
[2018-10-04 08:00] VITALS: BP 156/94
[2018-10-04] MEDS: FAMOTIDINE 20MG TABLET PO SCH ×2 (08:56→17:13)
[2018-10-04] MEDS: AMLODIPINE 5MG TABLET PO SCH (08:56)
[2018-10-04] MEDS: ASPIRIN 325MG TABLET PO SCH (08:56)
[2018-10-04] MEDS: PREDNISONE 20MG TABLET PO SCH (08:57)
[2018-10-04] MEDS: NICOTINE 14MG PATCH TD SCH (08:58)
[2018-10-04] MEDS: NITROGLYCERIN OINT 1GM/INCH UDPKT TD SCH (09:00)
[2018-10-04 12:00] VITALS: BP 151/86
[2018-10-04 16:00] VITALS: BP 142/85
[2018-10-04 20:00] VITALS: BP 130/80
[2018-10-04] MEDS: GUAIFENESIN 200MG/10ML SUGAR FREE UDC PO PRN (20:41)
[2018-10-04] MEDS: ENOXAPARIN 40MG/0.4ML SYR SUBCUT SCH (20:41)
[2018-10-04] MEDS: CLONIDINE 0.1MG TABLET PO PRN (23:49)
[2018-10-05] VITALS: BP 162/101
[2018-10-05] MEDS: IPRATROPIUM/ALBUTEROL 0.5-3(2.5)MG/3ML NEB HHN SCH ×6 (00:56→21:12)
[2018-10-05] MEDS: DILTIAZEM HCL 60MG TABLET PO SCH ×4 (01:19→20:56)
[2018-10-05 04:00] VITALS: BP 148/98
[2018-10-05] MEDS: GUAIFENESIN-DM 200MG-20MG/10ML UDC NG SCH ×3 (06:17→21:22)
[2018-10-05 08:00] VITALS: BP 128/86
[2018-10-05] MEDS: NITROGLYCERIN OINT 1GM/INCH UDPKT TD SCH (09:00)
[2018-10-05] MEDS: PREDNISONE 20MG TABLET PO SCH (09:11)
[2018-10-05] MEDS: ASPIRIN 325MG TABLET PO SCH (09:11)
[2018-10-05] MEDS: FAMOTIDINE 20MG TABLET PO SCH ×2 (09:12→17:00)
[2018-10-05] MEDS: AMLODIPINE 5MG TABLET PO SCH (09:12)
[2018-10-05] MEDS: NICOTINE 14MG PATCH TD SCH (09:13)
[2018-10-05 12:00] VITALS: BP 128/88
[2018-10-05] MEDS: GUAIFENESIN 200MG/10ML SUGAR FREE UDC PO PRN (13:11)
[2018-10-05] MEDS: ISOSORBIDE MONONITRATE 30MG TABLET SR 24HR PO SCH (13:11)
[2018-10-05 16:00] VITALS: BP 111/73
[2018-10-05] MEDS: HALOPERIDOL LACTATE 5MG/ML VIAL IM PRN ×2 (17:00→22:13)
[2018-10-05 20:13] VITALS: BP 122/74
[2018-10-05] MEDS: ENOXAPARIN 40MG/0.4ML SYR SUBCUT SCH (20:56)
[2018-10-06] VITALS: BP 152/99
[2018-10-06] MEDS: IPRATROPIUM/ALBUTEROL 0.5-3(2.5)MG/3ML NEB HHN SCH ×6 (00:26→20:53)
[2018-10-06] MEDS: DILTIAZEM HCL 60MG TABLET PO SCH ×4 (01:12→20:28)
[2018-10-06] MEDS: GUAIFENESIN-DM 200MG-20MG/10ML UDC NG SCH ×3 (05:59→21:01)
[2018-10-06 08:00] VITALS: BP 154/99
[2018-10-06] MEDS: NICOTINE 14MG PATCH TD SCH (10:12)
[2018-10-06] MEDS: FAMOTIDINE 20MG TABLET PO SCH ×2 (10:13→17:48)
[2018-10-06] MEDS: ASPIRIN 325MG TABLET PO SCH (10:14)
[2018-10-06] MEDS: AMLODIPINE 5MG TABLET PO SCH (10:14)
[2018-10-06] MEDS: PREDNISONE 20MG TABLET PO SCH (10:14)
[2018-10-06] MEDS: ISOSORBIDE MONONITRATE 30MG TABLET SR 24HR PO SCH (10:15)
[2018-10-06 12:00] VITALS: BP 125/76
[2018-10-06] MEDS: GUAIFENESIN 200MG/10ML SUGAR FREE UDC PO PRN ×4 (14:50→14:54)
[2018-10-06 16:00] VITALS: BP 116/74
[2018-10-06 20:00] VITALS: BP 111/69
[2018-10-06] MEDS: ENOXAPARIN 40MG/0.4ML SYR SUBCUT SCH (20:28)
[2018-10-06] MEDS: HALOPERIDOL LACTATE 5MG/ML VIAL IM PRN (21:19)
[2018-10-07] MEDS: DILTIAZEM HCL 60MG TABLET PO SCH ×4 (01:29→20:16)
[2018-10-07] MEDS: IPRATROPIUM/ALBUTEROL 0.5-3(2.5)MG/3ML NEB HHN SCH ×6 (01:32→21:12)
[2018-10-07 04:00] VITALS: BP 156/70
[2018-10-07] MEDS: GUAIFENESIN-DM 200MG-20MG/10ML UDC NG SCH ×3 (06:00→20:16)
[2018-10-07 08:00] VITALS: BP 147/99
[2018-10-07 09:04] LABS: BASOPHILS % 0.2 % (0.0-2.0); EOSINOPHILS % 0.5 % (0.0-5.0); HEMATOCRIT. 40.9 % (36.0-48.0); LYMPHOCYTES % 9.3 % (20.0-50.0); MEAN CORPUSCULAR HEMOGLOBIN 30.9 pg (28.0-32.0); MEAN CORPUSCULAR VOLUME 97.2 fL (81.0-99.0); MEAN PLATELET VOLUME 11.1 fl (7.4-10.4); MONOCYTES % 8.4 % (2.0-8.0); NEUTROPHILS % 81.6 % (40.0-76.0); PLATELET 148 x1000/uL (130-400); RED BLOOD CELL COUNT 4.21 mill/uL (4.2-5.4); RED CELL DISTRIBUTION WIDTH 14.3 % (11.6-14.6)
[2018-10-07 09:16] LABS: CHLORIDE 106 mEq/L (98-107)
[2018-10-07] MEDS: NICOTINE 14MG PATCH TD SCH (09:18)
[2018-10-07] MEDS: ASPIRIN 325MG TABLET PO SCH (09:19)
[2018-10-07] MEDS: PREDNISONE 20MG TABLET PO SCH (09:19)
[2018-10-07] MEDS: AMLODIPINE 5MG TABLET PO SCH (09:20)
[2018-10-07] MEDS: ISOSORBIDE MONONITRATE 30MG TABLET SR 24HR PO SCH (09:20)
[2018-10-07] MEDS: FAMOTIDINE 20MG TABLET PO SCH ×2 (09:20→17:08)
[2018-10-07] MEDS: HALOPERIDOL LACTATE 5MG/ML VIAL IM PRN ×3 (10:54→23:17)
[2018-10-07 12:00] VITALS: BP 117/66
[2018-10-07] MEDS: GUAIFENESIN 200MG/10ML SUGAR FREE UDC PO PRN ×2 (14:01→14:05)
[2018-10-07 16:00] VITALS: BP 111/66
[2018-10-07 20:00] VITALS: BP 135/89
[2018-10-07] MEDS: ENOXAPARIN 40MG/0.4ML SYR SUBCUT SCH (20:17)
[2018-10-08] VITALS (8 sets, daily range): BP systolic 113–145; BP diastolic 62–99
[2018-10-08] MEDS: DILTIAZEM HCL 60MG TABLET PO SCH ×4 (02:39→20:39)
[2018-10-08] MEDS: IPRATROPIUM/ALBUTEROL 0.5-3(2.5)MG/3ML NEB HHN SCH ×6 (04:45→21:33)
[2018-10-08] MEDS: GUAIFENESIN-DM 200MG-20MG/10ML UDC NG SCH ×3 (04:46→20:39)
[2018-10-08] MEDS: HALOPERIDOL LACTATE 5MG/ML VIAL IM PRN (04:50)
[2018-10-08] MEDS: FAMOTIDINE 20MG TABLET PO SCH ×2 (08:57→18:45)
[2018-10-08] MEDS: ISOSORBIDE MONONITRATE 30MG TABLET SR 24HR PO SCH (08:57)
[2018-10-08] MEDS: ASPIRIN 325MG TABLET PO SCH (09:02)
[2018-10-08] MEDS: AMLODIPINE 5MG TABLET PO SCH (09:02)
[2018-10-08] MEDS: PREDNISONE 20MG TABLET PO SCH (09:02)
[2018-10-08] MEDS: NICOTINE 14MG PATCH TD SCH (09:03)
[2018-10-08] MEDS: GUAIFENESIN 200MG/10ML SUGAR FREE UDC PO PRN ×2 (14:38→14:39)
[2018-10-08] MEDS: ENOXAPARIN 40MG/0.4ML SYR SUBCUT SCH (20:38)
[2018-10-09] VITALS: BP 145/94
[2018-10-09] MEDS: DILTIAZEM HCL 60MG TABLET PO SCH ×4 (02:42→22:11)
[2018-10-09 04:00] VITALS: BP 166/112
[2018-10-09] MEDS: GUAIFENESIN 200MG/10ML SUGAR FREE UDC PO PRN (05:09)
[2018-10-09] MEDS: GUAIFENESIN-DM 200MG-20MG/10ML UDC NG SCH ×3 (05:13→22:11)
[2018-10-09] MEDS: IPRATROPIUM/ALBUTEROL 0.5-3(2.5)MG/3ML NEB HHN SCH ×2 (05:43→20:21)
[2018-10-09] MEDS: HALOPERIDOL LACTATE 5MG/ML VIAL IM PRN (05:48)
[2018-10-09] MEDS: CLONIDINE 0.1MG TABLET PO PRN (05:49)
[2018-10-09 08:00] VITALS: BP 122/88
[2018-10-09] MEDS: ASPIRIN 325MG TABLET PO SCH (08:35)
[2018-10-09] MEDS: PREDNISONE 20MG TABLET PO SCH (08:35)
[2018-10-09] MEDS: NICOTINE 14MG PATCH TD SCH (08:37)
[2018-10-09] MEDS: FAMOTIDINE 20MG TABLET PO SCH ×2 (08:39→18:51)
[2018-10-09] MEDS: ISOSORBIDE MONONITRATE 30MG TABLET SR 24HR PO SCH (08:40)
[2018-10-09] MEDS: AMLODIPINE 5MG TABLET PO SCH (08:40)
[2018-10-09 12:00] VITALS: BP 120/77
[2018-10-09 16:00] VITALS: BP 136/92
[2018-10-09 20:00] VITALS: BP 141/94
[2018-10-09] MEDS: ENOXAPARIN 40MG/0.4ML SYR SUBCUT SCH (22:11)
[2018-10-10] VITALS: BP 162/105
[2018-10-10] MEDS: IPRATROPIUM/ALBUTEROL 0.5-3(2.5)MG/3ML NEB HHN SCH ×3 (00:47→21:28)
[2018-10-10] MEDS: DILTIAZEM HCL 60MG TABLET PO SCH ×4 (02:54→20:20)
[2018-10-10 04:00] VITALS: BP 138/88
[2018-10-10] MEDS: GUAIFENESIN-DM 200MG-20MG/10ML UDC NG SCH ×3 (05:30→20:19)
[2018-10-10 08:00] VITALS: BP 162/104
[2018-10-10] MEDS: ASPIRIN 325MG TABLET PO SCH (09:28)
[2018-10-10] MEDS: NICOTINE 14MG PATCH TD SCH (09:28)
[2018-10-10] MEDS: ISOSORBIDE MONONITRATE 30MG TABLET SR 24HR PO SCH (09:29)
[2018-10-10] MEDS: FAMOTIDINE 20MG TABLET PO SCH ×2 (09:29→17:18)
[2018-10-10] MEDS: PREDNISONE 20MG TABLET PO SCH (09:29)
[2018-10-10] MEDS: AMLODIPINE 5MG TABLET PO SCH (09:29)
[2018-10-10 12:00] VITALS: BP 116/75
[2018-10-10] MEDS: HALOPERIDOL LACTATE 5MG/ML VIAL IM PRN ×2 (17:19→23:07)
[2018-10-10 20:00] VITALS: BP 143/94
[2018-10-10] MEDS: ENOXAPARIN 40MG/0.4ML SYR SUBCUT SCH (20:19)
[2018-10-11] VITALS: BP 146/91
[2018-10-11] MEDS: IPRATROPIUM/ALBUTEROL 0.5-3(2.5)MG/3ML NEB HHN SCH ×6 (00:46→21:35)
[2018-10-11] MEDS: DILTIAZEM HCL 60MG TABLET PO SCH ×4 (03:15→21:00)
[2018-10-11 04:00] VITALS: BP 139/86
[2018-10-11] MEDS: GUAIFENESIN-DM 200MG-20MG/10ML UDC NG SCH ×3 (05:30→21:01)
[2018-10-11 08:00] VITALS: BP 128/86
[2018-10-11] MEDS: NICOTINE 14MG PATCH TD SCH (09:00)
[2018-10-11] MEDS: ISOSORBIDE MONONITRATE 30MG TABLET SR 24HR PO SCH (09:00)
[2018-10-11] MEDS: FAMOTIDINE 20MG TABLET PO SCH ×2 (09:00→16:52)
[2018-10-11] MEDS: PREDNISONE 20MG TABLET PO SCH (09:00)
[2018-10-11] MEDS: AMLODIPINE 5MG TABLET PO SCH (09:00)
[2018-10-11] MEDS: ASPIRIN 325MG TABLET PO SCH (09:00)
[2018-10-11] MEDS: HALOPERIDOL LACTATE 5MG/ML VIAL IM PRN (13:41)
[2018-10-11 16:00] VITALS: BP 129/81
[2018-10-11] MEDS ORDERED: HYDRALAZINE 10 MG in DEXTROSE 5% WATER 50 ML IV PRN (16:45)
[2018-10-11 20:00] VITALS: BP 149/104
[2018-10-11] MEDS: ENOXAPARIN 40MG/0.4ML SYR SUBCUT SCH (20:59)
[2018-10-12] MEDS: IPRATROPIUM/ALBUTEROL 0.5-3(2.5)MG/3ML NEB HHN SCH ×4 (01:30→21:02)
[2018-10-12] MEDS: DILTIAZEM HCL 60MG TABLET PO SCH ×4 (02:44→20:36)
[2018-10-12 04:00] VITALS: BP 158/109
[2018-10-12] MEDS: GUAIFENESIN-DM 200MG-20MG/10ML UDC NG SCH ×3 (06:14→22:00)
[2018-10-12 07:55] VITALS: BP 143/68
[2018-10-12] MEDS: PREDNISONE 20MG TABLET PO SCH (09:00)
[2018-10-12] MEDS: FAMOTIDINE 20MG TABLET PO SCH (09:00)
[2018-10-12] MEDS: ISOSORBIDE MONONITRATE 30MG TABLET SR 24HR PO SCH (09:00)
[2018-10-12] MEDS: ASPIRIN 325MG TABLET PO SCH (09:00)
[2018-10-12] MEDS: NICOTINE 14MG PATCH TD SCH (09:00)
[2018-10-12] MEDS: AMLODIPINE 5MG TABLET PO SCH (09:00)
[2018-10-12 12:00] VITALS: BP 142/76
[2018-10-12 20:00] VITALS: BP 151/106
[2018-10-12] MEDS: ENOXAPARIN 40MG/0.4ML SYR SUBCUT SCH (20:39)
[2018-10-12] MEDS: HALOPERIDOL LACTATE 5MG/ML VIAL IM PRN (22:07)
[2018-10-13] VITALS (7 sets, daily range): BP systolic 119–149; BP diastolic 91–105
[2018-10-13] MEDS: IPRATROPIUM/ALBUTEROL 0.5-3(2.5)MG/3ML NEB HHN SCH ×5 (00:05→21:40)
[2018-10-13] MEDS: DILTIAZEM HCL 60MG TABLET PO SCH ×4 (01:38→19:45)
[2018-10-13] MEDS: GUAIFENESIN-DM 200MG-20MG/10ML UDC NG SCH ×3 (05:39→23:04)
[2018-10-13] MEDS: HALOPERIDOL LACTATE 5MG/ML VIAL IM PRN ×2 (08:09→13:29)
[2018-10-13] MEDS: AMLODIPINE 5MG TABLET PO SCH (08:19)
[2018-10-13] MEDS: FAMOTIDINE 20MG TABLET PO SCH ×2 (08:20→16:37)
[2018-10-13] MEDS: ASPIRIN 325MG TABLET PO SCH (08:28)
[2018-10-13] MEDS: PREDNISONE 20MG TABLET PO SCH (08:28)
[2018-10-13] MEDS: NICOTINE 14MG PATCH TD SCH (08:28)
[2018-10-13] MEDS: ISOSORBIDE MONONITRATE 30MG TABLET SR 24HR PO SCH (08:28)
[2018-10-13] MEDS: ENOXAPARIN 40MG/0.4ML SYR SUBCUT SCH (20:40)
[2018-10-14] VITALS: BP 127/97
[2018-10-14] MEDS: IPRATROPIUM/ALBUTEROL 0.5-3(2.5)MG/3ML NEB HHN SCH ×5 (00:23→20:43)
[2018-10-14 04:00] VITALS: BP 122/98
[2018-10-14] MEDS: GUAIFENESIN-DM 200MG-20MG/10ML UDC NG SCH ×3 (05:43→21:28)
[2018-10-14] MEDS: DILTIAZEM HCL 60MG TABLET PO SCH ×4 (05:43→21:29)
[2018-10-14 08:00] VITALS: BP 145/103
[2018-10-14] MEDS: ASPIRIN 325MG TABLET PO SCH (08:56)
[2018-10-14] MEDS: ISOSORBIDE MONONITRATE 30MG TABLET SR 24HR PO SCH (08:57)
[2018-10-14] MEDS: FAMOTIDINE 20MG TABLET PO SCH ×2 (08:57→17:00)
[2018-10-14] MEDS: PREDNISONE 20MG TABLET PO SCH (08:57)
[2018-10-14] MEDS: AMLODIPINE 5MG TABLET PO SCH (08:57)
[2018-10-14] MEDS: NICOTINE 14MG PATCH TD SCH (08:58)
[2018-10-14] MEDS: HALOPERIDOL LACTATE 5MG/ML VIAL IM PRN (09:57)
[2018-10-14 12:00] VITALS: BP 116/77
[2018-10-14 16:00] VITALS: BP 126/91
[2018-10-14 20:00] VITALS: BP 134/96
[2018-10-14] MEDS: ENOXAPARIN 40MG/0.4ML SYR SUBCUT SCH (21:29)
[2018-10-15] VITALS: BP 120/83
[2018-10-15] MEDS: IPRATROPIUM/ALBUTEROL 0.5-3(2.5)MG/3ML NEB HHN SCH ×7 (01:00→23:32)
[2018-10-15] MEDS: DILTIAZEM HCL 60MG TABLET PO SCH ×4 (03:05→21:33)
[2018-10-15 04:00] VITALS: BP 121/80
[2018-10-15] MEDS: GUAIFENESIN-DM 200MG-20MG/10ML UDC NG SCH ×3 (06:07→21:36)
[2018-10-15 08:00] VITALS: BP 146/108
[2018-10-15] MEDS: ISOSORBIDE MONONITRATE 30MG TABLET SR 24HR PO SCH (08:34)
[2018-10-15] MEDS: ASPIRIN 325MG TABLET PO SCH (08:34)
[2018-10-15] MEDS: AMLODIPINE 5MG TABLET PO SCH (08:35)
[2018-10-15] MEDS: PREDNISONE 20MG TABLET PO SCH (08:35)
[2018-10-15] MEDS: FAMOTIDINE 20MG TABLET PO SCH ×2 (08:35→17:00)
[2018-10-15] MEDS: NICOTINE 14MG PATCH TD SCH ×2 (08:36→08:57)
[2018-10-15] MEDS: HALOPERIDOL LACTATE 5MG/ML VIAL IM PRN ×2 (11:05→17:09)
[2018-10-15 12:00] VITALS: BP 145/94
[2018-10-15 20:00] VITALS: BP 151/99
[2018-10-15] MEDS: ENOXAPARIN 40MG/0.4ML SYR SUBCUT SCH (21:33)
[2018-10-15] MEDS: GUAIFENESIN 200MG/10ML SUGAR FREE UDC PO PRN (21:33)
[2018-10-16] VITALS: BP 149/70
[2018-10-16] MEDS: DILTIAZEM HCL 60MG TABLET PO SCH ×4 (02:29→21:41)
[2018-10-16] MEDS: HALOPERIDOL LACTATE 5MG/ML VIAL IM PRN ×4 (02:33→21:41)
[2018-10-16] MEDS: IPRATROPIUM/ALBUTEROL 0.5-3(2.5)MG/3ML NEB HHN SCH ×5 (03:14→20:00)
[2018-10-16 04:00] VITALS: BP 138/73
[2018-10-16] MEDS: GUAIFENESIN-DM 200MG-20MG/10ML UDC NG SCH ×3 (06:35→22:00)
[2018-10-16 08:00] VITALS: BP 141/110
[2018-10-16] MEDS: FAMOTIDINE 20MG TABLET PO SCH ×2 (09:03→17:00)
[2018-10-16] MEDS: AMLODIPINE 5MG TABLET PO SCH (09:03)
[2018-10-16] MEDS: ASPIRIN 325MG TABLET PO SCH (09:04)
[2018-10-16] MEDS: ISOSORBIDE MONONITRATE 30MG TABLET SR 24HR PO SCH (09:04)
[2018-10-16] MEDS: PREDNISONE 20MG TABLET PO SCH (09:04)
[2018-10-16] MEDS: NICOTINE 14MG PATCH TD SCH (09:05)
[2018-10-16 11:19] VITALS: BP 102/71
[2018-10-16 20:00] VITALS: BP 144/87
[2018-10-16] MEDS: ENOXAPARIN 40MG/0.4ML SYR SUBCUT SCH (21:50)
[2018-10-16 23:50] VITALS: BP 130/83
[2018-10-17] MEDS: DILTIAZEM HCL 60MG TABLET PO SCH ×4 (02:00→20:56)
[2018-10-17 04:00] VITALS: BP 145/103
[2018-10-17] MEDS: IPRATROPIUM/ALBUTEROL 0.5-3(2.5)MG/3ML NEB HHN SCH ×4 (04:00→21:45)
[2018-10-17] MEDS: GUAIFENESIN-DM 200MG-20MG/10ML UDC NG SCH ×2 (06:02→15:32)
[2018-10-17 08:00] VITALS: BP 150/101
[2018-10-17] MEDS: FAMOTIDINE 20MG TABLET PO SCH ×2 (08:01→17:35)
[2018-10-17] MEDS: PREDNISONE 20MG TABLET PO SCH (08:01)
[2018-10-17] MEDS: ASPIRIN 325MG TABLET PO SCH (08:01)
[2018-10-17] MEDS: AMLODIPINE 5MG TABLET PO SCH (08:02)
[2018-10-17] MEDS: ISOSORBIDE MONONITRATE 30MG TABLET SR 24HR PO SCH (08:02)
[2018-10-17] MEDS: NICOTINE 14MG PATCH TD SCH (08:44)
[2018-10-17 12:00] VITALS: BP 114/69
[2018-10-17 16:00] VITALS: BP 119/69
[2018-10-17] MEDS: HALOPERIDOL LACTATE 5MG/ML VIAL IM PRN (17:35)
[2018-10-17 20:00] VITALS: BP 128/83
[2018-10-17] MEDS: ENOXAPARIN 40MG/0.4ML SYR SUBCUT SCH (20:56)
[2018-10-18] VITALS: BP 130/86
[2018-10-18] MEDS: IPRATROPIUM/ALBUTEROL 0.5-3(2.5)MG/3ML NEB HHN SCH ×6 (01:17→20:54)
[2018-10-18] MEDS: GUAIFENESIN-DM 200MG-20MG/10ML UDC NG SCH ×4 (01:18→22:00)
[2018-10-18] MEDS: DILTIAZEM HCL 60MG TABLET PO SCH ×4 (01:24→19:58)
[2018-10-18 04:00] VITALS: BP 128/81
[2018-10-18 08:00] VITALS: BP 158/101
[2018-10-18] MEDS: ASPIRIN 325MG TABLET PO SCH (08:30)
[2018-10-18] MEDS: NICOTINE 14MG PATCH TD SCH (08:30)
[2018-10-18] MEDS: PREDNISONE 20MG TABLET PO SCH (08:30)
[2018-10-18] MEDS: ISOSORBIDE MONONITRATE 30MG TABLET SR 24HR PO SCH (08:31)
[2018-10-18] MEDS: FAMOTIDINE 20MG TABLET PO SCH ×3 (08:31→18:13)
[2018-10-18] MEDS: AMLODIPINE 5MG TABLET PO SCH (08:31)
[2018-10-18] MEDS: HALOPERIDOL LACTATE 5MG/ML VIAL IM PRN ×2 (08:50→14:47)
[2018-10-18 12:00] VITALS: BP 112/60
[2018-10-18 16:00] VITALS: BP 133/80
[2018-10-18] MEDS: QUETIAPINE FUMARATE 25MG TABLET PO SCH (19:59)
[2018-10-18 20:30] VITALS: BP 139/84
[2018-10-19 00:36] VITALS: BP 117/65
[2018-10-19] MEDS: HALOPERIDOL LACTATE 5MG/ML VIAL IM PRN (05:50)
[2018-10-19] MEDS: GUAIFENESIN-DM 200MG-20MG/10ML UDC NG SCH ×3 (06:00→22:36)
[2018-10-19] MEDS: ASPIRIN 325MG TABLET PO SCH (08:52)
[2018-10-19] MEDS: ISOSORBIDE MONONITRATE 30MG TABLET SR 24HR PO SCH (08:53)
[2018-10-19] MEDS: FAMOTIDINE 20MG TABLET PO SCH ×2 (08:54→18:18)
[2018-10-19] MEDS: PREDNISONE 20MG TABLET PO SCH (08:54)
[2018-10-19] MEDS: QUETIAPINE FUMARATE 25MG TABLET PO SCH (08:54)
[2018-10-19] MEDS: AMLODIPINE 5MG TABLET PO SCH (08:54)
[2018-10-19 20:00] VITALS: BP 153/106
[2018-10-19] MEDS: LORAZEPAM 1MG TABLET PO PRN (22:36)
[2018-10-20] VITALS: BP 157/108
[2018-10-20 04:00] VITALS: BP 163/101
[2018-10-20] MEDS: GUAIFENESIN-DM 200MG-20MG/10ML UDC NG SCH ×3 (06:00→22:00)
[2018-10-20 08:00] VITALS: BP 172/109
[2018-10-20] MEDS: FAMOTIDINE 20MG TABLET PO SCH ×2 (10:04→17:29)
[2018-10-20] MEDS: ASPIRIN 325MG TABLET PO SCH (10:04)
[2018-10-20] MEDS: QUETIAPINE FUMARATE 25MG TABLET PO SCH (10:05)
[2018-10-20] MEDS: ISOSORBIDE MONONITRATE 30MG TABLET SR 24HR PO SCH (10:05)
[2018-10-20] MEDS: AMLODIPINE 5MG TABLET PO SCH (10:05)
[2018-10-20] MEDS: PREDNISONE 20MG TABLET PO SCH (10:05)
[2018-10-20 12:00] VITALS: BP 142/94
[2018-10-20 16:00] VITALS: BP 126/86
[2018-10-20 20:00] VITALS: BP 132/87
[2018-10-20] MEDS: HALOPERIDOL LACTATE 5MG/ML VIAL IM PRN (21:56)
[2018-10-21] VITALS: BP 146/97
[2018-10-21 04:00] VITALS: BP 171/106
[2018-10-21] MEDS: GUAIFENESIN-DM 200MG-20MG/10ML UDC NG SCH ×2 (06:00→14:00)
[2018-10-21 08:00] VITALS: BP 172/104
[2018-10-21] MEDS: FAMOTIDINE 20MG TABLET PO SCH ×2 (08:41→16:26)
[2018-10-21] MEDS: ASPIRIN 325MG TABLET PO SCH (08:41)
[2018-10-21] MEDS: PREDNISONE 20MG TABLET PO SCH (08:41)
[2018-10-21] MEDS: AMLODIPINE 5MG TABLET PO SCH (08:41)
[2018-10-21] MEDS: QUETIAPINE FUMARATE 25MG TABLET PO SCH (08:41)
[2018-10-21] MEDS: ISOSORBIDE MONONITRATE 30MG TABLET SR 24HR PO SCH (08:41)
[2018-10-21 12:00] VITALS: BP 158/106
[2018-10-21] MEDS: HALOPERIDOL LACTATE 5MG/ML VIAL IM PRN (13:31)
[2018-10-21 16:00] VITALS: BP 177/112
[2018-10-21] MEDS: LORAZEPAM 1MG TABLET PO PRN (19:50)
[2018-10-21 20:00] VITALS: BP 145/80
[2018-10-22] VITALS: BP 132/64
[2018-10-22 04:00] VITALS: BP 140/53
[2018-10-22] MEDS: LORAZEPAM 1MG TABLET PO PRN (06:46)
[2018-10-22 08:00] VITALS: BP 165/108
[2018-10-22] MEDS: PREDNISONE 20MG TABLET PO SCH (09:48)
[2018-10-22] MEDS: ISOSORBIDE MONONITRATE 30MG TABLET SR 24HR PO SCH (09:49)
[2018-10-22] MEDS: FAMOTIDINE 20MG TABLET PO SCH ×2 (09:49→17:00)
[2018-10-22] MEDS: QUETIAPINE FUMARATE 25MG TABLET PO SCH (09:49)
[2018-10-22 12:00] VITALS: BP 160/118
[2018-10-22 16:00] VITALS: BP 142/99
[2018-10-22 20:00] VITALS: BP 130/99
[2018-10-23] VITALS (7 sets, daily range): BP systolic 129–177; BP diastolic 86–114
[2018-10-23] MEDS: ISOSORBIDE MONONITRATE 30MG TABLET SR 24HR PO SCH (08:57)
[2018-10-23] MEDS: PREDNISONE 20MG TABLET PO SCH (08:57)
[2018-10-23] MEDS: FAMOTIDINE 20MG TABLET PO SCH ×2 (08:57→17:52)
[2018-10-23] MEDS: QUETIAPINE FUMARATE 25MG TABLET PO SCH (08:57)
[2018-10-23] MEDS: CLONIDINE 0.1MG TABLET PO PRN (09:27)
[2018-10-23] MEDS: LORAZEPAM 1MG TABLET PO PRN (22:18)
[2018-10-24] VITALS: BP 162/106
[2018-10-24 04:00] VITALS: BP 172/105
[2018-10-24] MEDS: HALOPERIDOL LACTATE 5MG/ML VIAL IM PRN ×2 (05:59→23:35)
[2018-10-24] MEDS: LORAZEPAM 1MG TABLET PO PRN (05:59)
[2018-10-24 08:00] VITALS: BP 154/97
[2018-10-24] MEDS: QUETIAPINE FUMARATE 25MG TABLET PO SCH (08:41)
[2018-10-24] MEDS: PREDNISONE 20MG TABLET PO SCH (08:42)
[2018-10-24] MEDS: FAMOTIDINE 20MG TABLET PO SCH ×2 (08:42→18:00)
[2018-10-24] MEDS: ISOSORBIDE MONONITRATE 30MG TABLET SR 24HR PO SCH (08:42)
[2018-10-24 12:00] VITALS: BP 116/86
[2018-10-24 16:00] VITALS: BP 126/90
[2018-10-24 20:00] VITALS: BP 159/103
[2018-10-25] VITALS: BP 154/116
[2018-10-25 04:00] VITALS: BP 188/119
[2018-10-25 08:00] VITALS: BP 158/116
[2018-10-25] MEDS: QUETIAPINE FUMARATE 25MG TABLET PO SCH (08:57)
[2018-10-25] MEDS: FAMOTIDINE 20MG TABLET PO SCH (08:57)
[2018-10-25] MEDS: PREDNISONE 20MG TABLET PO SCH (08:57)
[2018-10-25] MEDS: HALOPERIDOL LACTATE 5MG/ML VIAL IM PRN ×2 (08:59→19:04)
[2018-10-25 12:00] VITALS: BP_SYST 135; BP_SYST 158; BP_DIAS 116; BP_DIAS 88
[2018-10-25 16:00] VITALS: BP 153/111
[2018-10-25 20:00] VITALS: BP 178/106
[2018-10-26] VITALS: BP 192/123
[2018-10-26] MEDS: CLONIDINE 0.1MG TABLET PO PRN ×2 (00:26→06:20)
[2018-10-26] MEDS: HALOPERIDOL LACTATE 5MG/ML VIAL IM PRN (01:07)
[2018-10-26 04:00] VITALS: BP 222/133
[2018-10-26 08:00] VITALS: BP 127/94
[2018-10-26] MEDS: QUETIAPINE FUMARATE 25MG TABLET PO SCH (09:11)
[2018-10-26] MEDS: PREDNISONE 20MG TABLET PO SCH (09:11)
[2018-10-26] MEDS: ISOSORBIDE MONONITRATE 30MG TABLET SR 24HR PO SCH ×2 (09:12→09:20)
[2018-10-26 09:50] VITALS: BP 127/94
== END 2018-10-26 11:40 | DRG 816 ==
LOC: ER 05:55 → CVICU 09:31 → EDBEDREQ 09:34 → EDBEDREQTM 14:07 → EDBEDREQSVC 14:07 → CANRESERV 17:29 → ENRESERV 17:29 → 5EST 09-26 10:45 → 6WST 10-01 11:35 → 6EST 10-10 20:40
PROVIDERS: ADMIT Internal Medicine; ATTEND Internal Medicine
PROC: 0BH17EZ Insertion of Endotracheal Airway into Trachea, Via Natural or Artificial Opening (ICD-10-PCS; principal; 2018-09-20)
PROC: 5A1955Z Respiratory Ventilation, Greater than 96 Consecutive Hours (ICD-10-PCS; 2018-09-20)
PROC: 5A09357 Assistance with Respiratory Ventilation, Less than 24 Consecutive Hours, Continuous Positive Airway Pressure (ICD-10-PCS; 2018-09-20)
DX: T40.5X1A Poisoning by cocaine, accidental (unintentional), initial encounter (principal); J96.02 Acute respiratory failure with hypercapnia; J68.0 Bronchitis and pneumonitis due to chemicals, gases, fumes and vapors; A41.9 Sepsis, unspecified organism; E44.1 Mild protein-calorie malnutrition; I10 Essential (primary) hypertension; Z60.2 Problems related to living alone; F17.210 Nicotine dependence, cigarettes, uncomplicated; Z59.0 Homelessness; Z98.2 Presence of cerebrospinal fluid drainage device; Z79.899 Other long term (current) drug therapy; Z71.6 Tobacco abuse counseling; Y92.89 Other specified places as the place of occurrence of the external cause; Z68.20 Body mass index [BMI] 20.0-20.9, adult
CPT/HCPCS: 31500; 36415; 36600; 71045; 80048; 80305; 82375; 82550; 82553; 82805; 83036; 83880; 84478; 84484; 85027; 87070; 87077; 87804; 92610; 93005; 93970; 94002; 94003; 94640; 94660; 96374; 96375; 97110; 97116; 97162; 97166; 97530; 97535; 99285; C1893; C9113; J0330; J0360; J0690; J1630; J1650; J1956; J2704; J2920; J2930; J3010; J3490; J7030; J7040; J7050; J7512; J7611; J7620

== ENCOUNTER 2018-11-16 12:09 | Inpatient (IN) | payer MEDICAID, OTHER ==
[~2018-11-16] VITALS: Ht 154.9 cm; Wt 58.5 kg
[2018-11-16] MEDS ORDERED: METHYLPREDNISOLONE SOD SUCC 125 MG/2 ML VIAL IV STA (12:24)
[2018-11-16] MEDS ORDERED: MAGNESIUM 2 G PREMIX 50 ML IV ONE (12:30)
[2018-11-16] MEDS ORDERED: IPRATROPIUM/ALBUTEROL 0.5-3(2.5)MG/3ML NEB HHN ONE ×2 (12:30→18:30)
[2018-11-16 12:38] LABS: HEMATOCRIT. 36.5 % (36.0-48.0); HEMOGLOBIN. 11.6 g/dL (12.0-16.0); MEAN CORPUSCULAR HEMOGLOBIN 31.4 pg (28.0-32.0); MEAN CORPUSCULAR VOLUME 98.6 fL (81.0-99.0); MEAN PLATELET VOLUME 10.7 fl (7.4-10.4); PLATELET 163 x1000/uL (130-400); RED CELL DISTRIBUTION WIDTH 15.4 % (11.6-14.6)
[2018-11-16 12:53] LABS: CHLORIDE 108 mEq/L (98-107)
[2018-11-16 12:59] LABS: PLATELET ESTIMATE NORMAL
[2018-11-16] MEDS ORDERED: LEVOFLOXACIN 500MG PREMIX 100 ML IV ONE (13:00)
[2018-11-16] MEDS ORDERED: IPRATROPIUM/ALBUTEROL 0.5-3(2.5)MG/3ML NEB HHN PRN (17:00)
[2018-11-16 17:21] LABS: BG CARBOXYHEMOGLOBIN 0.4 % (0.5-1.5); BG FRACTION INSPIRED OXYGEN 32; BG HCO3 ACT 31.3 mmol/L (22.0-26.0); BG METHEMOGLOBIN 0.4 % (0.0-1.5); BG OXYHEMOGLOBIN 96.2 % (94.0-97.0); BG PH 7.342 (7.350-7.450); BG PO2 92.9 mmHg (75.0-100.0); BG SAMPLE SITE RIGHT RADIAL; BG TOTAL HEMOGLOBIN 13.1 g/dL (12.0-18.0); BG VENT MODE NASAL CANNULA
[2018-11-16] MEDS ORDERED: ACETAMINOPHEN 650MG/20.3ML UDC GT PRN (18:00)
[2018-11-16] MEDS ORDERED: ONDANSETRON HCL 4MG/2ML INJ IV PRN (18:00)
[2018-11-16] MEDS ORDERED: CEFTRIAXONE 1 G PREMIX 50 ML IV NR (18:00)
[2018-11-16] MEDS ORDERED: GUAIFENESIN 200MG/10ML SUGAR FREE UDC PO PRN (18:00)
[2018-11-16] MEDS ORDERED: ACETAMINOPHEN 650MG SUPP PR PRN (18:00)
[2018-11-16] MEDS ORDERED: LORAZEPAM 0.5MG TABLET PO PRN (18:00)
[2018-11-16] MEDS ORDERED: ACETAMINOPHEN 325MG TABLET PO PRN (18:00)
[2018-11-16] MEDS ORDERED: MAGNESIUM/ALUMINUM HYDROXIDE/SIMETHICONE 30ML UDC PO PRN (18:00)
[2018-11-16] MEDS ORDERED: PIPERACILLIN/TAZ 3.375G PREMIX 50 ML IV SCH (18:00)
[2018-11-16] MEDS ORDERED: IPRATROPIUM/ALBUTEROL 0.5-3(2.5)MG/3ML NEB HHN SCH (18:00)
[2018-11-16] MEDS ORDERED: NA PHOS,M-B/NA PHOS,DI-BA ENEMA 118ML PR PRN (18:00)
[2018-11-16] MEDS: IPRATROPIUM/ALBUTEROL 0.5-3(2.5)MG/3ML NEB INH PRN ×2 (18:09→21:37)
[2018-11-16] MEDS ORDERED: BUDESONIDE 0.5MG/2ML NEB HHN NR (18:15)
[2018-11-16] MEDS ORDERED: ETOMIDATE 2MG/ML 10ML VIAL IV ONE ×4 (18:30→22:00)
[2018-11-16] MEDS ORDERED: SUCCINYLCHOLINE CHLORIDE 200MG/10ML IV ONE ×3 (18:30→20:00)
[2018-11-16] MEDS ORDERED: PROPOFOL 10MG/ML 100ML 100 ML IV ONE ×2 (18:30→22:00)
[2018-11-16 20:12] LABS: CLARITY URINE CLEAR (CLEAR); COLOR URINE YELLOW (YELLOW); KETONES URINE NEGATIVE (NEGATIVE); LEUKOCYTE ESTERASE URINE NEGATIVE (NEGATIVE); NITRITE URINE NEGATIVE (NEGATIVE); OCCULT BLOOD URINE NEGATIVE (NEGATIVE); PROTEIN URINE TRACE (NEGATIVE); SPECIFIC GRAVITY URINE 1.024 (1.005-1.030); UROBILINOGEN URINE 0.2 E.U./dL (0.2-1.0)
[2018-11-16] MEDS ORDERED: LORAZEPAM 2MG/ML CPJ ONE (20:13)
[2018-11-16 20:31] LABS: *AMPHETAMINES SCREEN URINE NEGATIVE (NEGATIVE); *BARBITURATES SCREEN URINE NEGATIVE (NEGATIVE); *BENZODIAZEPINES SCREEN URINE NEGATIVE (NEGATIVE); PHENCYCLIDINE URINE SCREEN NEGATIVE (NEGATIVE)
[2018-11-16 20:32] LABS: *COCAINE SCREEN URINE NEGATIVE (NEGATIVE); METHADONE URINE SCREEN NEGATIVE (NEGATIVE); OPIATES URINE SCREEN PRESUMTIVE POSITIVE (NEGATIVE)
[2018-11-16 20:33] LABS: CANNABINOID URINE SCREEN NEGATIVE (NEGATIVE)
[2018-11-16 20:54] LABS: BG BASE EXCESS 3.1 mmol/L (-2.0-2.0); BG CARBOXYHEMOGLOBIN 0.2 % (0.5-1.5); BG DEOXYHEMOGLOBIN 4.2 % (0.0-5.0); BG FRACTION INSPIRED OXYGEN 40; BG HCO3 ACT 28.5 mmol/L (22.0-26.0); BG METHEMOGLOBIN 0.3 % (0.0-1.5); BG OXYGEN SATURATION 95.8 % (92.0-98.5); BG OXYHEMOGLOBIN 95.3 % (94.0-97.0); BG PH 7.401 (7.350-7.450); BG PO2 80.9 mmHg (75.0-100.0); BG SAMPLE SITE RIGHT RADIAL; BG TIDAL VOLUME(mL) 500 mL; BG TOTAL HEMOGLOBIN 12.8 g/dL (12.0-18.0); BG VENT MODE VENT - A/C; BG VENT RATE 14 set
[2018-11-16] MEDS ORDERED: LORAZEPAM 2MG/ML CPJ IV ONE ×2 (21:00)
[2018-11-16] MEDS ORDERED: ONDANSETRON HCL 4MG/2ML INJ IV ONE ×2 (21:00→22:00)
[2018-11-16] MEDS ORDERED: MIDAZOLAM HCL 50 MG in DEXTROSE 5% WATER 40 ML IV ONE ×4 (22:00)
[2018-11-16] MEDS ORDERED: MIDAZOLAM HCL 2 MG/2 ML VIAL IV ONE (22:00)
[2018-11-16 23:31] LABS: CREATINE KINASE 40 IU/L (26-192)
[2018-11-16 23:46] LABS: CREATINE KINASE MB FRACTION 1.6 ng/mL (0.5-3.6)
[2018-11-17] VITALS (87 sets, daily range): BP systolic 102–216; BP diastolic 70–143
[2018-11-17] MEDS: MIDAZOLAM HCL 50 MG in DEXTROSE 5% WATER 40 ML IV PRN ×2 (01:00→09:45)
[2018-11-17] MEDS ORDERED: NIFE60TA64 MT (01:19)
[2018-11-17] MEDS: IPRATROPIUM/ALBUTEROL 0.5-3(2.5)MG/3ML NEB INH SCH ×4 (02:26→19:53)
[2018-11-17] MEDS: PROPOFOL 10MG/ML 100ML 100 ML IV PRN ×4 (02:46→21:54)
[2018-11-17] MEDS: CLONIDINE 0.1MG TABLET PO PRN (03:23)
[2018-11-17] MEDS: AMLODIPINE 10MG TABLET PO SCH (04:09)
[2018-11-17] MEDS: HYDRALAZINE HCL 50MG TABLET PO SCH ×3 (04:09→21:54)
[2018-11-17] MEDS ORDERED: NITROGLYCERIN 50MG PREMIX 250 ML IV PRN (04:15)
[2018-11-17 05:34] LABS: HEMOGLOBIN. 11.7 g/dL (12.0-16.0); MEAN CORPUSCULAR HEMOGLOBIN 31.2 pg (28.0-32.0); MEAN CORPUSCULAR VOLUME 98.4 fL (81.0-99.0); MEAN PLATELET VOLUME 11.1 fl (7.4-10.4); PLATELET 148 x1000/uL (130-400); RED BLOOD CELL COUNT 3.76 mill/uL (4.2-5.4); RED CELL DISTRIBUTION WIDTH 15.6 % (11.6-14.6)
[2018-11-17] MEDS: SODIUM CHLORIDE 0.9% INJ 3ML FLUSH IVF SCH ×3 (05:41→21:54)
[2018-11-17] MEDS: PIPERACILLIN/TAZ 3.375G PREMIX 50 ML IV SCH ×3 (06:07→21:54)
[2018-11-17] MEDS: METHYLPREDNISOLONE SOD SUCC 125 MG/2 ML VIAL IV SCH ×4 (06:07→23:30)
[2018-11-17 06:48] LABS: CHLORIDE 106 mEq/L (98-107)
[2018-11-17 07:20] LABS: LDL CHOLESTEROL 115 mg/dL (5-100)
[2018-11-17 07:22] LABS: CREATINE KINASE 36 IU/L (26-192)
[2018-11-17 07:23] LABS: HDL CHOLESTEROL 71 mg/dL (40-59)
[2018-11-17 07:26] LABS: CREATINE KINASE MB FRACTION 1.2 ng/mL (0.5-3.6)
[2018-11-17 08:22] LABS: BG BASE EXCESS 10.4 mmol/L (-2.0-2.0); BG CARBOXYHEMOGLOBIN 0.1 % (0.5-1.5); BG FRACTION INSPIRED OXYGEN 40; BG HCO3 ACT 33.3 mmol/L (22.0-26.0); BG METHEMOGLOBIN 0.4 % (0.0-1.5); BG OXYHEMOGLOBIN 98.5 % (94.0-97.0); BG PCO2 38.1 mmHg (35.0-45.0); BG PO2 146.5 mmHg (75.0-100.0); BG SAMPLE SITE RIGHT RADIAL; BG TIDAL VOLUME(mL) 500 mL; BG TOTAL HEMOGLOBIN 12.4 g/dL (12.0-18.0); BG VENT MODE VENT - A/C; BG VENT RATE 14 set
[2018-11-17] MEDS: BUDESONIDE 0.5MG/2ML NEB HHN SCH ×2 (08:25→19:53)
[2018-11-17] MEDS: ENOXAPARIN 40MG/0.4ML SYR SUBCUT SCH (08:48)
[2018-11-17 09:37] LABS: PLATELET ESTIMATE NORMAL
[2018-11-17] MEDS: PANTOPRAZOLE SODIUM 40 MG/VIAL IV SCH (12:30)
[2018-11-17] MEDS ORDERED: CEFTRIAXONE 1 G PREMIX 50 ML IV SCH (14:00)
[2018-11-17] MEDS: FENTANYL CITRATE/PF 500 MCG in SODIUM CHLORIDE 0.9% 40 ML IV PRN (14:22)
[2018-11-18] VITALS (65 sets, daily range): BP systolic 114–186; BP diastolic 28–127
[2018-11-18] MEDS: IPRATROPIUM/ALBUTEROL 0.5-3(2.5)MG/3ML NEB INH SCH ×4 (01:39→20:08)
[2018-11-18] MEDS: PROPOFOL 10MG/ML 100ML 100 ML IV PRN ×2 (02:58→09:47)
[2018-11-18] MEDS: FENTANYL CITRATE/PF 500 MCG in SODIUM CHLORIDE 0.9% 40 ML IV PRN (03:31)
[2018-11-18] MEDS: SODIUM CHLORIDE 0.9% INJ 3ML FLUSH IVF SCH ×3 (05:46→21:06)
[2018-11-18] MEDS: PIPERACILLIN/TAZ 3.375G PREMIX 50 ML IV SCH ×3 (05:46→21:05)
[2018-11-18] MEDS: HYDRALAZINE HCL 50MG TABLET PO SCH ×3 (05:46→21:05)
[2018-11-18] MEDS: METHYLPREDNISOLONE SOD SUCC 125 MG/2 ML VIAL IV SCH (05:46)
[2018-11-18] MEDS: BUDESONIDE 0.5MG/2ML NEB HHN SCH ×2 (08:07→20:08)
[2018-11-18] MEDS: AMLODIPINE 10MG TABLET PO SCH (08:10)
[2018-11-18] MEDS: ENOXAPARIN 40MG/0.4ML SYR SUBCUT SCH (08:10)
[2018-11-18] MEDS: PANTOPRAZOLE SODIUM 40 MG/VIAL IV SCH (08:10)
[2018-11-18 08:19] LABS: BG CARBOXYHEMOGLOBIN 0.3 % (0.5-1.5); BG DEOXYHEMOGLOBIN 0.8 % (0.0-5.0); BG FRACTION INSPIRED OXYGEN 40; BG HCO3 ACT 25.6 mmol/L (22.0-26.0); BG METHEMOGLOBIN 0.3 % (0.0-1.5); BG OXYGEN SATURATION 99.2 % (92.0-98.5); BG OXYHEMOGLOBIN 98.6 % (94.0-97.0); BG PCO2 29.2 mmHg (35.0-45.0); BG PO2 159.5 mmHg (75.0-100.0); BG SAMPLE SITE RIGHT RADIAL; BG TIDAL VOLUME(mL) 500 mL; BG TOTAL HEMOGLOBIN 12.7 g/dL (12.0-18.0); BG VENT MODE VENT - A/C; BG VENT RATE 14 set
[2018-11-18] MEDS ORDERED: PANTOPRAZOLE SODIUM 40 MG/VIAL IV SCH (09:00)
[2018-11-18] MEDS: LORAZEPAM 2MG/ML CPJ IV PRN ×3 (11:13→21:05)
[2018-11-18 12:10] LABS: BG CARBOXYHEMOGLOBIN 0.3 % (0.5-1.5); BG DEOXYHEMOGLOBIN 1.3 % (0.0-5.0); BG FRACTION INSPIRED OXYGEN 40; BG HCO3 ACT 29.1 mmol/L (22.0-26.0); BG METHEMOGLOBIN 0.4 % (0.0-1.5); BG OXYGEN SATURATION 98.7 % (92.0-98.5); BG PCO2 45.5 mmHg (35.0-45.0); BG PH 7.423 (7.350-7.450); BG PO2 152.6 mmHg (75.0-100.0); BG PRESSURE SUPPORT 8; BG SAMPLE SITE RIGHT RADIAL; BG TOTAL HEMOGLOBIN 13.1 g/dL (12.0-18.0); BG VENT MODE VENT - CPAP
[2018-11-18] MEDS: METHYLPREDNISOLONE SOD SUCC 40 MG/ML VIAL IV SCH ×2 (12:36→21:05)
[2018-11-18] MEDS: CLONIDINE 0.1MG TABLET PO PRN (16:20)
[2018-11-18] MEDS: DIPHENHYDRAMINE 50MG/ML VIAL IV PRN (22:12)
[2018-11-19] VITALS (42 sets, daily range): BP systolic 121–162; BP diastolic 83–117
[2018-11-19] MEDS: IPRATROPIUM/ALBUTEROL 0.5-3(2.5)MG/3ML NEB INH SCH ×4 (02:36→20:16)
[2018-11-19] MEDS: CLONIDINE 0.1MG TABLET PO PRN (03:18)
[2018-11-19] MEDS: HYDRALAZINE HCL 50MG TABLET PO SCH ×3 (05:33→21:08)
[2018-11-19] MEDS: LORAZEPAM 2MG/ML CPJ IV PRN ×3 (05:33→21:31)
[2018-11-19] MEDS: DIPHENHYDRAMINE 50MG/ML VIAL IV PRN (05:33)
[2018-11-19] MEDS: SODIUM CHLORIDE 0.9% INJ 3ML FLUSH IVF SCH ×3 (05:34→21:08)
[2018-11-19] MEDS: METHYLPREDNISOLONE SOD SUCC 40 MG/ML VIAL IV SCH ×3 (05:39→21:08)
[2018-11-19] MEDS: PIPERACILLIN/TAZ 3.375G PREMIX 50 ML IV SCH ×3 (05:39→21:08)
[2018-11-19 08:32] LABS: BG CARBOXYHEMOGLOBIN 0.7 % (0.5-1.5); BG DEOXYHEMOGLOBIN 2.5 % (0.0-5.0); BG FRACTION INSPIRED OXYGEN 40; BG HCO3 ACT 30.5 mmol/L (22.0-26.0); BG METHEMOGLOBIN 0.4 % (0.0-1.5); BG OXYGEN SATURATION 97.5 % (92.0-98.5); BG OXYHEMOGLOBIN 96.4 % (94.0-97.0); BG PCO2 53.6 mmHg (35.0-45.0); BG PH 7.373 (7.350-7.450); BG PO2 104.4 mmHg (75.0-100.0); BG SAMPLE SITE RIGHT RADIAL; BG TOTAL HEMOGLOBIN 13.7 g/dL (12.0-18.0); BG VENT MODE MASK - AEROSOL
[2018-11-19] MEDS: BUDESONIDE 0.5MG/2ML NEB HHN SCH ×2 (08:45→20:16)
[2018-11-19] MEDS: AMLODIPINE 10MG TABLET PO SCH (09:04)
[2018-11-19] MEDS: ENOXAPARIN 40MG/0.4ML SYR SUBCUT SCH (09:04)
[2018-11-19] MEDS: PANTOPRAZOLE SODIUM 40 MG/VIAL IV SCH (09:04)
[2018-11-19 10:19] LABS: HEMATOCRIT. 42.8 % (36.0-48.0); HEMOGLOBIN. 13.5 g/dL (12.0-16.0); MEAN CORPUSCULAR HEMOGLOBIN 31.1 pg (28.0-32.0); MEAN CORPUSCULAR VOLUME 98.5 fL (81.0-99.0); PLATELET 141 x1000/uL (130-400); RED BLOOD CELL COUNT 4.34 mill/uL (4.2-5.4); RED CELL DISTRIBUTION WIDTH 16.2 % (11.6-14.6)
[2018-11-19 11:20] LABS: PLATELET ESTIMATE NORMAL
[2018-11-19 11:29] LABS: CHLORIDE 108 mEq/L (98-107)
[2018-11-20] VITALS (30 sets, daily range): BP systolic 118–185; BP diastolic 74–110
[2018-11-20] MEDS: PIPERACILLIN/TAZ 3.375G PREMIX 50 ML IV SCH ×3 (05:27→21:32)
[2018-11-20] MEDS: LORAZEPAM 2MG/ML CPJ IV PRN ×2 (05:27→21:02)
[2018-11-20] MEDS: SODIUM CHLORIDE 0.9% INJ 3ML FLUSH IVF SCH ×3 (05:27→21:32)
[2018-11-20] MEDS: HYDRALAZINE HCL 50MG TABLET PO SCH ×3 (05:27→21:32)
[2018-11-20] MEDS: METHYLPREDNISOLONE SOD SUCC 40 MG/ML VIAL IV SCH ×2 (05:27→18:06)
[2018-11-20] MEDS: IPRATROPIUM/ALBUTEROL 0.5-3(2.5)MG/3ML NEB INH SCH ×3 (08:26→19:51)
[2018-11-20] MEDS: BUDESONIDE 0.5MG/2ML NEB HHN SCH ×2 (08:26→19:51)
[2018-11-20] MEDS: AMLODIPINE 10MG TABLET PO SCH (09:10)
[2018-11-20] MEDS: ENOXAPARIN 40MG/0.4ML SYR SUBCUT SCH (09:10)
[2018-11-20] MEDS: PANTOPRAZOLE SODIUM 40 MG/VIAL IV SCH (09:10)
[2018-11-20] MEDS: QUETIAPINE FUMARATE 25MG TABLET PO SCH (09:54)
[2018-11-20] MEDS: CLONIDINE 0.1MG TABLET PO PRN (11:16)
[2018-11-21] VITALS (18 sets, daily range): BP systolic 131–184; BP diastolic 27–124
[2018-11-21] MEDS: IPRATROPIUM/ALBUTEROL 0.5-3(2.5)MG/3ML NEB INH SCH ×3 (00:55→21:28)
[2018-11-21] MEDS: LORAZEPAM 2MG/ML CPJ IV PRN (02:24)
[2018-11-21] MEDS: HYDRALAZINE HCL 50MG TABLET PO SCH ×3 (05:23→21:34)
[2018-11-21] MEDS: SODIUM CHLORIDE 0.9% INJ 3ML FLUSH IVF SCH ×3 (05:23→21:35)
[2018-11-21] MEDS: PIPERACILLIN/TAZ 3.375G PREMIX 50 ML IV SCH ×3 (05:23→22:21)
[2018-11-21] MEDS: METHYLPREDNISOLONE SOD SUCC 40 MG/ML VIAL IV SCH ×2 (05:23→17:32)
[2018-11-21 06:03] LABS: HEMATOCRIT. 38.8 % (36.0-48.0); HEMOGLOBIN. 12.2 g/dL (12.0-16.0); MEAN CORPUSCULAR HEMOGLOBIN 31.1 pg (28.0-32.0); MEAN CORPUSCULAR VOLUME 98.5 fL (81.0-99.0); MEAN PLATELET VOLUME 11.8 fl (7.4-10.4); PLATELET 140 x1000/uL (130-400); RED BLOOD CELL COUNT 3.94 mill/uL (4.2-5.4); RED CELL DISTRIBUTION WIDTH 15.9 % (11.6-14.6)
[2018-11-21 06:12] LABS: CHLORIDE 110 mEq/L (98-107)
[2018-11-21] MEDS: PANTOPRAZOLE SODIUM 40 MG/VIAL IV SCH (07:54)
[2018-11-21] MEDS: ENOXAPARIN 40MG/0.4ML SYR SUBCUT SCH (07:54)
[2018-11-21] MEDS: QUETIAPINE FUMARATE 25MG TABLET PO SCH (07:54)
[2018-11-21] MEDS: AMLODIPINE 10MG TABLET PO SCH (07:55)
[2018-11-21 08:04] LABS: ATYPICAL LYMPHOCYTES 1; PLATELET ESTIMATE NORMAL
[2018-11-21] MEDS: BUDESONIDE 0.5MG/2ML NEB HHN SCH ×2 (09:49→21:27)
[2018-11-21] MEDS: CLONIDINE 0.1MG TABLET PO PRN (21:35)
[2018-11-22] VITALS: BP 188/125
[2018-11-22 00:30] VITALS: BP 154/101
[2018-11-22] MEDS: IPRATROPIUM/ALBUTEROL 0.5-3(2.5)MG/3ML NEB INH SCH ×2 (02:39→07:19)
[2018-11-22 04:00] VITALS: BP 167/111
[2018-11-22] MEDS: CLONIDINE 0.1MG TABLET PO PRN (04:54)
[2018-11-22] MEDS: METHYLPREDNISOLONE SOD SUCC 40 MG/ML VIAL IV SCH (05:14)
[2018-11-22] MEDS: PIPERACILLIN/TAZ 3.375G PREMIX 50 ML IV SCH ×2 (05:14→14:00)
[2018-11-22] MEDS: SODIUM CHLORIDE 0.9% INJ 3ML FLUSH IVF SCH (05:14)
[2018-11-22] MEDS: HYDRALAZINE HCL 50MG TABLET PO SCH ×2 (05:14→14:02)
[2018-11-22] MEDS: BUDESONIDE 0.5MG/2ML NEB HHN SCH (07:18)
[2018-11-22 08:00] VITALS: BP 172/104
[2018-11-22] MEDS: QUETIAPINE FUMARATE 25MG TABLET PO SCH (08:13)
[2018-11-22] MEDS: AMLODIPINE 10MG TABLET PO SCH (08:14)
[2018-11-22] MEDS: ENOXAPARIN 40MG/0.4ML SYR SUBCUT SCH (08:14)
[2018-11-22] MEDS: PANTOPRAZOLE SODIUM 40 MG/VIAL IV SCH (08:14)
[2018-11-22] MEDS ORDERED: FUROSEMIDE 40MG/4ML VIAL IVP NR (12:45)
[2018-11-22 13:38] VITALS: BP 124/82
[2018-11-23] MEDS ORDERED: FAMOTIDINE 20MG TABLET PO SCH (09:00)
[2018-11-23] MEDS ORDERED: PREDNISONE 20MG TABLET PO SCH (09:00)
== END 2018-11-22 15:30 | DRG 720 ==
LOC: ER 12:09 → CVICU 13:02 → EDBEDREQTM 13:05 → EDBEDREQ 13:05 → EDBEDREQSVC 18:00 → ENRESERV 23:05 → 8WST 11-21 16:33
PROVIDERS: ADMIT Family Medicine; ATTEND Family Medicine
PROC: 5A1945Z Respiratory Ventilation, 24-96 Consecutive Hours (ICD-10-PCS; principal; 2018-11-16)
PROC: 5A09357 Assistance with Respiratory Ventilation, Less than 24 Consecutive Hours, Continuous Positive Airway Pressure (ICD-10-PCS; 2018-11-16)
PROC: 0BH17EZ Insertion of Endotracheal Airway into Trachea, Via Natural or Artificial Opening (ICD-10-PCS; 2018-11-16)
PROC: 02HV33Z Insertion of Infusion Device into Superior Vena Cava, Percutaneous Approach (ICD-10-PCS; 2018-11-16)
PROC: 5A09357 Assistance with Respiratory Ventilation, Less than 24 Consecutive Hours, Continuous Positive Airway Pressure (ICD-10-PCS; 2018-11-19)
PROC: 5A09357 Assistance with Respiratory Ventilation, Less than 24 Consecutive Hours, Continuous Positive Airway Pressure (ICD-10-PCS; 2018-11-20)
PROC: 5A09357 Assistance with Respiratory Ventilation, Less than 24 Consecutive Hours, Continuous Positive Airway Pressure (ICD-10-PCS; 2018-11-21)
DX: A41.9 Sepsis, unspecified organism (principal); J96.20 Acute and chronic respiratory failure, unspecified whether with hypoxia or hypercapnia; E87.3 Alkalosis; G93.41 Metabolic encephalopathy; J44.1 Chronic obstructive pulmonary disease with (acute) exacerbation; F41.9 Anxiety disorder, unspecified; E78.5 Hyperlipidemia, unspecified; F14.10 Cocaine abuse, uncomplicated; K30 Functional dyspepsia; T38.0X5A Adverse effect of glucocorticoids and synthetic analogues, initial encounter; I10 Essential (primary) hypertension; K59.00 Constipation, unspecified; D72.829 Elevated white blood cell count, unspecified; F17.210 Nicotine dependence, cigarettes, uncomplicated; Z59.0 Homelessness; Z99.81 Dependence on supplemental oxygen; Z98.2 Presence of cerebrospinal fluid drainage device; Z79.899 Other long term (current) drug therapy; Y92.89 Other specified places as the place of occurrence of the external cause
CPT/HCPCS: 31500; 36415; 36556; 36600; 71045; 80061; 80305; 82375; 82550; 82553; 82805; 83605; 83880; 84145; 84478; 84484; 87070; 87804; 92610; 93005; 93971; 94002; 94003; 94640; 94660; 96365; 96366; 96367; 99285; A6261; C9113; J0330; J0696; J1200; J1650; J1956; J2060; J2250; J2405; J2543; J2704; J2920; J2930; J3010; J3475; J3490; J7050; J7060; J7620; J7626; A4315

== ENCOUNTER 2020-03-11 11:23 | Inpatient (IN) | payer MEDICAID ==
[~2020-03-11] VITALS: Ht 160 cm; Wt 62.6 kg
[~2020-03-11 11:23] MED LIST changes: +NIFE-32 MT; -Nifedipine PO
[2020-03-11 13:13] LABS: HEMATOCRIT. 42.8 % (36.0-48.0); HEMOGLOBIN. 13.9 g/dL (12.0-16.0); MEAN CORPUSCULAR HEMOGLOBIN 30.6 pg (28.0-32.0); MEAN CORPUSCULAR VOLUME 94.4 fL (81.0-99.0); MEAN PLATELET VOLUME 10.9 fl (7.4-10.4); PLATELET 136 x1000/uL (130-400); RED BLOOD CELL COUNT 4.53 mill/uL (4.2-5.4); RED CELL DISTRIBUTION WIDTH 15.3 % (11.6-14.6)
[2020-03-11 13:18] LABS: CHLORIDE 103 mEq/L (98-107)
[2020-03-11 13:22] LABS: PROTHROMBIN TIME 10.4 sec (9.6-11.0)
[2020-03-11 13:38] LABS: CLARITY URINE CLEAR (CLEAR); COLOR URINE YELLOW (YELLOW); KETONES URINE NEGATIVE (NEGATIVE); LEUKOCYTE ESTERASE URINE NEGATIVE (NEGATIVE); NITRITE URINE NEGATIVE (NEGATIVE); OCCULT BLOOD URINE NEGATIVE (NEGATIVE); PROTEIN URINE 1+ (NEGATIVE); SPECIFIC GRAVITY URINE 1.027 (1.005-1.030)
[2020-03-11] MEDS ORDERED: CEFTRIAXONE 1 G PREMIX 50 ML IV ONE (13:45)
[2020-03-11] MEDS ORDERED: AZITHROMYCIN 500 MG in DEXT 5% WATER 250 ML IV ONE (13:45)
[2020-03-11 14:07] LABS: PLATELET ESTIMATE NORMAL
[2020-03-11] MEDS ORDERED: ACETAMINOPHEN 325MG TABLET PO PRN (16:00)
[2020-03-11] MEDS ORDERED: AZITHROMYCIN 500 MG TABLET PO ONE (16:00)
[2020-03-11] MEDS ORDERED: ONDANSETRON HCL 4MG/2ML INJ IV PRN (16:00)
[2020-03-11] MEDS: ENOXAPARIN 60MG/0.6ML SYR SUBCUT SCH (20:03)
[2020-03-11] MEDS ORDERED: DIPHENHYDRAMINE 50MG/ML VIAL IV PRN (23:15)
[2020-03-11] MEDS: CLONIDINE 0.1MG TABLET PO PRN (23:37)
[2020-03-12] VITALS (8 sets, daily range): BP systolic 110–168; BP diastolic 96–114
[2020-03-12] MEDS: ENOXAPARIN 60MG/0.6ML SYR SUBCUT SCH ×2 (05:07→20:04)
[2020-03-12] MEDS: CLONIDINE 0.1MG TABLET PO PRN ×2 (05:08→20:04)
[2020-03-12] MEDS: AZITHROMYCIN 250 MG TABLET PO SCH (08:29)
[2020-03-12] MEDS ORDERED: NON FORMULARY PATIENT HOME MED XX SCH (11:30)
[2020-03-12] MEDS: ALBUTEROL 6.7GM HFA INHALER ORI SCH (12:54)
[2020-03-12] MEDS ORDERED: VANCOMYCIN 1250MG in DEXTROSE 5% WATER 250ML IV SCH (13:00)
[2020-03-12] MEDS: CEFTRIAXONE 1,000 MG in DEXTROSE 5% WATER 50 ML IV SCH (13:34)
[2020-03-12] MEDS ORDERED: CEFTRIAXONE 1,000 MG in DEXTROSE 5% WATER 50 ML IV SCH (14:00)
[2020-03-12] MEDS: FLUTICASONE FUROATE 100 1 INH/CAP ORI SCH (14:06)
[2020-03-12] MEDS ORDERED: LORAZEPAM 2MG/ML CPJ IV PRN (17:15)
[2020-03-13] VITALS: BP 124/88
[2020-03-13] MEDS: ALBUTEROL 6.7GM HFA INHALER ORI SCH ×4 (00:03→18:00)
[2020-03-13 04:00] VITALS: BP 125/93
[2020-03-13 05:17] LABS: HEMATOCRIT. 42.3 % (36.0-48.0); HEMOGLOBIN. 13.6 g/dL (12.0-16.0); MEAN CORPUSCULAR HEMOGLOBIN 30.1 pg (28.0-32.0); MEAN CORPUSCULAR VOLUME 93.5 fL (81.0-99.0); MEAN PLATELET VOLUME 11.4 fl (7.4-10.4); PLATELET 103 x1000/uL (130-400); RED BLOOD CELL COUNT 4.53 mill/uL (4.2-5.4); RED CELL DISTRIBUTION WIDTH 15.1 % (11.6-14.6)
[2020-03-13 05:22] LABS: CHLORIDE 103 mEq/L (98-107)
[2020-03-13] MEDS: ENOXAPARIN 60MG/0.6ML SYR SUBCUT SCH ×2 (05:35→18:42)
[2020-03-13] MEDS: VANCOMYCIN 1 G PREMIX 200 ML IV SCH (06:03)
[2020-03-13 08:00] VITALS: BP 159/102
[2020-03-13] MEDS: AZITHROMYCIN 250 MG TABLET PO SCH (08:42)
[2020-03-13] MEDS: FLUTICASONE FUROATE 100 1 INH/CAP ORI SCH (08:42)
[2020-03-13 10:53] LABS: PLATELET ESTIMATE DECREASED
[2020-03-13 12:00] VITALS: BP 151/100
[2020-03-13] MEDS: CEFTRIAXONE 1,000 MG in DEXTROSE 5% WATER 50 ML IV SCH (12:02)
[2020-03-13 16:00] VITALS: BP 172/115
[2020-03-13] MEDS: CLONIDINE 0.1MG TABLET PO PRN (17:27)
[2020-03-13] MEDS: AMLODIPINE 10MG TABLET PO SCH (18:54)
[2020-03-13] MEDS: LOSARTAN POTASSIUM 50 MG TABLET PO SCH (18:54)
[2020-03-13 20:00] VITALS: BP 113/87
[2020-03-14] VITALS: BP 140/87
[2020-03-14] MEDS: ALBUTEROL 6.7GM HFA INHALER ORI SCH ×4 (00:32→17:20)
[2020-03-14] MEDS: VANCOMYCIN 1 G PREMIX 200 ML IV SCH (00:32)
[2020-03-14 04:00] VITALS: BP 164/111
[2020-03-14] MEDS: CLONIDINE 0.1MG TABLET PO PRN (05:15)
[2020-03-14] MEDS: ENOXAPARIN 60MG/0.6ML SYR SUBCUT SCH ×2 (06:07→17:25)
[2020-03-14 08:00] VITALS: BP 145/96
[2020-03-14] MEDS: FLUTICASONE FUROATE 100 1 INH/CAP ORI SCH (09:12)
[2020-03-14] MEDS: LOSARTAN POTASSIUM 50 MG TABLET PO SCH (09:13)
[2020-03-14] MEDS: AMLODIPINE 10MG TABLET PO SCH (09:13)
[2020-03-14] MEDS: AZITHROMYCIN 250 MG TABLET PO SCH (09:13)
[2020-03-14 12:00] VITALS: BP 130/93
[2020-03-14 12:57] VITALS: BP 131/94
[2020-03-14] MEDS: CEFTRIAXONE 1,000 MG in DEXTROSE 5% WATER 50 ML IV SCH (13:11)
[2020-03-14 15:59] LABS: HEMATOCRIT. 45.9 % (36.0-48.0); HEMOGLOBIN. 14.8 g/dL (12.0-16.0); MEAN CORPUSCULAR HEMOGLOBIN 29.9 pg (28.0-32.0); MEAN PLATELET VOLUME 11.1 fl (7.4-10.4); PLATELET 97 x1000/uL (130-400); RED BLOOD CELL COUNT 4.94 mill/uL (4.2-5.4); RED CELL DISTRIBUTION WIDTH 15.1 % (11.6-14.6)
[2020-03-14 16:00] VITALS: BP 151/98
[2020-03-14 16:04] LABS: CHLORIDE 102 mEq/L (98-107)
[2020-03-15 07:58] LABS: PLATELET ESTIMATE DECREASED
== END 2020-03-14 18:45 | DRG 720 ==
LOC: ER 11:46 → 7WST 13:48 → EDBEDREQTM 14:20 → EDBEDREQ 14:20 → ENRESERV 22:10
PROVIDERS: ADMIT Internal Medicine; ATTEND Internal Medicine
DX: A41.89 Other specified sepsis (principal); U07.1 COVID-19; J96.00 Acute respiratory failure, unspecified whether with hypoxia or hypercapnia; B97.89 Other viral agents as the cause of diseases classified elsewhere; F03.90 Unspecified dementia, unspecified severity, without behavioral disturbance, psychotic disturbance, mood disturbance, and anxiety; F17.200 Nicotine dependence, unspecified, uncomplicated; I10 Essential (primary) hypertension; J12.89 Other viral pneumonia; J44.1 Chronic obstructive pulmonary disease with (acute) exacerbation; J44.0 Chronic obstructive pulmonary disease with (acute) lower respiratory infection; K21.9 Gastro-esophageal reflux disease without esophagitis; F14.10 Cocaine abuse, uncomplicated; Z99.81 Dependence on supplemental oxygen; Z98.2 Presence of cerebrospinal fluid drainage device
CPT/HCPCS: 36415; 71045; 80048; 80053; 80202; 81003; 83605; 83880; 84145; 84484; 85025; 93005; 94640; 99291; J0456; J0696; J1200; J1650; J3370; J7060

== ENCOUNTER 2020-03-19 00:56 | Inpatient (IN) | payer MEDICAID ==
[~2020-03-19] VITALS: Ht 165.1 cm; Wt 64.4 kg
[2020-03-19 01:54] LABS: HEMATOCRIT. 47.9 % (36.0-48.0); HEMOGLOBIN. 15.1 g/dL (12.0-16.0); MEAN CORPUSCULAR HEMOGLOBIN 29.5 pg (28.0-32.0); MEAN CORPUSCULAR VOLUME 93.6 fL (81.0-99.0); MEAN PLATELET VOLUME 10.2 fl (7.4-10.4); PLATELET 152 x1000/uL (130-400); RED BLOOD CELL COUNT 5.12 mill/uL (4.2-5.4); RED CELL DISTRIBUTION WIDTH 15.2 % (11.6-14.6)
[2020-03-19 02:02] LABS: CHLORIDE 112 mEq/L (98-107)
[2020-03-19 02:07] LABS: ETHANOL BLOOD < 10 mg/dL
[2020-03-19 02:09] LABS: D-DIMER 1.31 mg/L FEU (<0.50); INR 1.1; PROTHROMBIN TIME 11.7 sec (9.6-11.0)
[2020-03-19 02:11] LABS: CREATINE KINASE 749 IU/L (26-192)
[2020-03-19] MEDS ORDERED: PIPERACILLIN/TAZOBACTAM 3.375GM/50ML PREMIX IV ONE (02:15)
[2020-03-19] MEDS ORDERED: AZITHROMYCIN 500 MG in DEXT 5% WATER 250 ML IV NR (02:15)
[2020-03-19] MEDS ORDERED: VANCOMYCIN 1 G PREMIX 200 ML IV NR (02:15)
[2020-03-19] MEDS ORDERED: SODIUM CHLORIDE 0.9% 1,000 ML IV NR (02:15)
[2020-03-19] MEDS ORDERED: PIPERACILLIN/TAZ 3.375G PREMIX 50 ML IV NR (02:30)
[2020-03-19 03:11] LABS: PLATELET ESTIMATE NORMAL
[2020-03-19] MEDS ORDERED: IOHEXOL-350 100 ML BOTTLE ONE (05:49)
[2020-03-19 06:29] LABS: CLARITY URINE CLOUDY (CLEAR); COLOR URINE YELLOW (YELLOW); KETONES URINE NEGATIVE (NEGATIVE); LEUKOCYTE ESTERASE URINE 1+ (NEGATIVE); NITRITE URINE NEGATIVE (NEGATIVE); OCCULT BLOOD URINE TRACE (NEGATIVE); PROTEIN URINE 2+ (NEGATIVE); UROBILINOGEN URINE 0.2 E.U./dL (0.2-1.0)
[2020-03-19] MEDS ORDERED: ONDANSETRON HCL 4MG/2ML INJ IV PRN (07:15)
[2020-03-19] MEDS ORDERED: GUAIFENESIN 200MG/10ML SUGAR FREE UDC PO PRN (07:15)
[2020-03-19] MEDS ORDERED: ACETAMINOPHEN 325MG TABLET PO PRN ×2 (07:15)
[2020-03-19] MEDS ORDERED: MAGNESIUM/ALUMINUM HYDROXIDE/SIMETHICONE 30ML UDC PO PRN (07:15)
[2020-03-19] MEDS ORDERED: KETOROLAC 15MG/ML VIAL IV PRN (07:15)
[2020-03-19] MEDS ORDERED: NITROGLYCERIN 0.4MG TABLET SL SL PRN (07:15)
[2020-03-19] MEDS ORDERED: DOCUSATE SODIUM 100MG CAPSULE PO PRN (07:15)
[2020-03-19 07:40] LABS: T4 FREE 1.82 ng/dL (0.76-1.46)
[2020-03-19 07:44] LABS: FOLIC ACID (FOLATE) SERUM 19.9 ng/mL (>5.38)
[2020-03-19] MEDS ORDERED: PIPERACILLIN/TAZOBACTAM 3.375 G in DEXT 5% WATER 100 ML IV SCH (07:45)
[2020-03-19 09:30] VITALS: BP 122/85
[2020-03-19 12:50] LABS: BG BASE EXCESS 4.6 mmol/L (-2.0-2.0); BG CARBOXYHEMOGLOBIN 0.3 % (0.5-1.5); BG DEOXYHEMOGLOBIN 4.9 % (0.0-5.0); BG FRACTION INSPIRED OXYGEN 44; BG HCO3 ACT 31.3 mmol/L (22.0-26.0); BG METHEMOGLOBIN 0.3 % (0.0-1.5); BG OXYGEN SATURATION 95.1 % (92.0-98.5); BG OXYHEMOGLOBIN 94.5 % (94.0-97.0); BG PCO2 55.3 mmHg (35.0-45.0); BG PH 7.371 (7.350-7.450); BG SAMPLE SITE RIGHT RADIAL; BG TOTAL HEMOGLOBIN 14.4 g/dL (12.0-18.0); BG VENT MODE MASK - SIMPLE
[2020-03-19] MEDS ORDERED: ALBUTEROL 6.7GM HFA INHALER ORI SCH (13:15)
[2020-03-19] MEDS: PIPERACILLIN/TAZOBACTAM 3.375 G in DEXT 5% WATER 100 ML IV SCH ×2 (14:51→22:54)
[2020-03-19] MEDS: DEXAMETHASONE 10 MG/ML VIAL IV SCH (14:52)
[2020-03-19] MEDS: FAMOTIDINE 20MG TABLET PO SCH (14:52)
[2020-03-19] MEDS: ENOXAPARIN 30MG/0.3ML SYR SUBCUT SCH (14:52)
[2020-03-19] MEDS: ASCORBIC ACID 500 MG TABLET PO SCH ×2 (14:53→19:54)
[2020-03-19] MEDS: ASPIRIN 81MG EC TABLET PO SCH (14:53)
[2020-03-19] MEDS: LEVOTHYROXINE SODIUM 50MCG TABLET PO SCH (14:53)
[2020-03-19] MEDS: ZINC SULFATE 220 MG ( 50 ) CAPSULE PO SCH (14:53)
[2020-03-19 16:00] VITALS: BP 119/88
[2020-03-19] MEDS ORDERED: VANCOMYCIN 1 G PREMIX 200 ML IV SCH ×2 (18:00→20:00)
[2020-03-19 20:20] LABS: CREATINE KINASE 559 IU/L (26-192)
[2020-03-19 20:21] LABS: CREATINE KINASE MB FRACTION < 1.0 ng/mL (0.5-3.6)
[2020-03-19 20:29] VITALS: BP 138/96
[2020-03-19] MEDS ORDERED: ZOLPIDEM TARTRATE 5MG TABLET PO PRN (21:00)
[2020-03-20] VITALS (47 sets, daily range): BP systolic 82–170; BP diastolic 49–109
[2020-03-20 04:45] LABS: BG BASE EXCESS 1.7 mmol/L (-2.0-2.0); BG CARBOXYHEMOGLOBIN 0.4 % (0.5-1.5); BG DEOXYHEMOGLOBIN 34.1 % (0.0-5.0); BG FRACTION INSPIRED OXYGEN 100; BG METHEMOGLOBIN 0.2 % (0.0-1.5); BG OXYGEN SATURATION 65.7 % (92.0-98.5); BG OXYHEMOGLOBIN 65.3 % (94.0-97.0); BG PCO2 55.6 mmHg (35.0-45.0); BG PH 7.335 (7.350-7.450); BG PO2 37.6 mmHg (75.0-100.0); BG SAMPLE SITE RIGHT BRACHIAL; BG TOTAL HEMOGLOBIN 16.2 g/dL (12.0-18.0); BG VENT MODE MASK - NRB
[2020-03-20 05:02] LABS: BG BASE EXCESS 2.7 mmol/L (-2.0-2.0); BG CARBOXYHEMOGLOBIN 0.4 % (0.5-1.5); BG DEOXYHEMOGLOBIN 4.2 % (0.0-5.0); BG FRACTION INSPIRED OXYGEN 100; BG HCO3 ACT 29.3 mmol/L (22.0-26.0); BG METHEMOGLOBIN 0.3 % (0.0-1.5); BG OXYGEN SATURATION 95.8 % (92.0-98.5); BG OXYHEMOGLOBIN 95.1 % (94.0-97.0); BG PCO2 52.6 mmHg (35.0-45.0); BG PH 7.364 (7.350-7.450); BG PO2 85.2 mmHg (75.0-100.0); BG SAMPLE SITE RIGHT BRACHIAL; BG VENT MODE MASK - NRB
[2020-03-20] MEDS: GUAIFENESIN 600MG ER TABLET PO SCH ×2 (05:51→21:54)
[2020-03-20] MEDS: PIPERACILLIN/TAZOBACTAM 3.375 G in DEXT 5% WATER 100 ML IV SCH ×3 (05:51→23:12)
[2020-03-20 08:05] LABS: CREATINE KINASE 400 IU/L (26-192); CREATINE KINASE MB FRACTION 1.4 ng/mL (0.5-3.6)
[2020-03-20] MEDS: ASPIRIN 81MG EC TABLET PO SCH (08:58)
[2020-03-20] MEDS: FAMOTIDINE 20MG TABLET PO SCH (08:58)
[2020-03-20] MEDS: LEVOTHYROXINE SODIUM 50MCG TABLET PO SCH (08:59)
[2020-03-20] MEDS: DEXAMETHASONE 10 MG/ML VIAL IV SCH (08:59)
[2020-03-20] MEDS: ZINC SULFATE 220 MG ( 50 ) CAPSULE PO SCH (08:59)
[2020-03-20] MEDS: ASCORBIC ACID 500 MG TABLET PO SCH ×2 (09:01→21:54)
[2020-03-20] MEDS: ENOXAPARIN 30MG/0.3ML SYR SUBCUT SCH (09:01)
[2020-03-20] MEDS ORDERED: NOREPINEPHRINE 32 MG in DEXT 5% WATER 218 ML IV PRN (14:00)
[2020-03-20] MEDS: PROPOFOL 10MG/ML 100ML 100 ML IV PRN ×2 (14:00→19:49)
[2020-03-20] MEDS ORDERED: PHENYLEPHRINE 50 MG in DEXT 5% WATER 245 ML IV PRN (15:45)
[2020-03-20] MEDS: IPRATROPIUM/ALBUTEROL 0.5-3(2.5)MG/3ML NEB HHN SCH ×2 (16:07→20:00)
[2020-03-20 17:26] LABS: BG BASE EXCESS 0.6 mmol/L (-2.0-2.0); BG CARBOXYHEMOGLOBIN 0.3 % (0.5-1.5); BG DEOXYHEMOGLOBIN 0.4 % (0.0-5.0); BG FRACTION INSPIRED OXYGEN 100; BG HCO3 ACT 24.2 mmol/L (22.0-26.0); BG METHEMOGLOBIN 0.3 % (0.0-1.5); BG OXYGEN SATURATION 99.6 % (92.0-98.5); BG PCO2 35.5 mmHg (35.0-45.0); BG PH 7.451 (7.350-7.450); BG PO2 349.2 mmHg (75.0-100.0); BG SAMPLE SITE RIGHT RADIAL; BG TIDAL VOLUME(mL) 450 mL; BG TOTAL HEMOGLOBIN 12.8 g/dL (12.0-18.0); BG VENT MODE VENT - PRVC; BG VENT RATE 20 set
[2020-03-20] MEDS ORDERED: VANCOMYCIN 750 MG PREMIX 150 ML IV SCH (18:00)
[2020-03-21] VITALS (96 sets, daily range): BP systolic 93–170; BP diastolic 67–109
[2020-03-21] MEDS: IPRATROPIUM/ALBUTEROL 0.5-3(2.5)MG/3ML NEB HHN SCH ×6 (03:50→20:25)
[2020-03-21 05:25] LABS: HEMATOCRIT. 38.1 % (36.0-48.0); HEMOGLOBIN. 11.9 g/dL (12.0-16.0); MEAN CORPUSCULAR HEMOGLOBIN 29.7 pg (28.0-32.0); MEAN CORPUSCULAR VOLUME 95.1 fL (81.0-99.0); MEAN PLATELET VOLUME 12.2 fl (7.4-10.4); PLATELET 257 x1000/uL (130-400); RED BLOOD CELL COUNT 4.01 mill/uL (4.2-5.4); RED CELL DISTRIBUTION WIDTH 16.1 % (11.6-14.6)
[2020-03-21] MEDS: LEVOTHYROXINE SODIUM 50MCG TABLET PO SCH (06:03)
[2020-03-21] MEDS: PIPERACILLIN/TAZOBACTAM 3.375 G in DEXT 5% WATER 100 ML IV SCH ×3 (06:04→20:48)
[2020-03-21] MEDS: DEXAMETHASONE 10 MG/ML VIAL IV SCH (08:00)
[2020-03-21] MEDS: FAMOTIDINE 20MG TABLET PO SCH (08:00)
[2020-03-21] MEDS: ASCORBIC ACID 500 MG TABLET PO SCH ×2 (08:00→20:48)
[2020-03-21] MEDS: ZINC SULFATE 220 MG ( 50 ) CAPSULE PO SCH (08:00)
[2020-03-21] MEDS: GUAIFENESIN 600MG ER TABLET PO SCH ×2 (08:01→20:00)
[2020-03-21] MEDS: ASPIRIN 81MG EC TABLET PO SCH (08:01)
[2020-03-21] MEDS: ENOXAPARIN 30MG/0.3ML SYR SUBCUT SCH (08:01)
[2020-03-21] MEDS: PROPOFOL 10MG/ML 100ML 100 ML IV PRN ×2 (08:03→14:02)
[2020-03-21 08:24] LABS: BG CARBOXYHEMOGLOBIN 0.3 % (0.5-1.5); BG DEOXYHEMOGLOBIN 0.9 % (0.0-5.0); BG HCO3 ACT 23.8 mmol/L (22.0-26.0); BG METHEMOGLOBIN 0.5 % (0.0-1.5); BG OXYGEN SATURATION 99.1 % (92.0-98.5); BG OXYHEMOGLOBIN 98.3 % (94.0-97.0); BG PCO2 40.1 mmHg (35.0-45.0); BG PH 7.392 (7.350-7.450); BG PO2 213.6 mmHg (75.0-100.0); BG SAMPLE SITE RIGHT RADIAL; BG TIDAL VOLUME(mL) 450 mL; BG TOTAL HEMOGLOBIN 12.6 g/dL (12.0-18.0); BG VENT MODE VENT- PRVC; BG VENT RATE 20 set
[2020-03-21] MEDS ORDERED: POTASSIUM CHLORIDE 20MEQ/PACKET PO SCH (09:30)
[2020-03-21 14:23] LABS: PLATELET ESTIMATE NORMAL
[2020-03-22] VITALS (95 sets, daily range): BP systolic 89–166; BP diastolic 65–103
[2020-03-22] MEDS ORDERED: VANCOMYCIN 750 MG PREMIX 150 ML IV SCH
[2020-03-22] MEDS: IPRATROPIUM/ALBUTEROL 0.5-3(2.5)MG/3ML NEB HHN SCH ×6 (00:10→20:23)
[2020-03-22] MEDS: PROPOFOL 10MG/ML 100ML 100 ML IV PRN ×3 (03:56→21:19)
[2020-03-22] MEDS: PIPERACILLIN/TAZOBACTAM 3.375 G in DEXT 5% WATER 100 ML IV SCH ×3 (05:52→21:11)
[2020-03-22] MEDS: LEVOTHYROXINE SODIUM 50MCG TABLET PO SCH (05:53)
[2020-03-22 07:58] LABS: BG BASE EXCESS -0.8 mmol/L (-2.0-2.0); BG CARBOXYHEMOGLOBIN 0.3 % (0.5-1.5); BG DEOXYHEMOGLOBIN 1.1 % (0.0-5.0); BG HCO3 ACT 24.3 mmol/L (22.0-26.0); BG METHEMOGLOBIN 0.2 % (0.0-1.5); BG OXYGEN SATURATION 98.9 % (92.0-98.5); BG OXYHEMOGLOBIN 98.4 % (94.0-97.0); BG PCO2 41.8 mmHg (35.0-45.0); BG PH 7.382 (7.350-7.450); BG PO2 147.8 mmHg (75.0-100.0); BG SAMPLE SITE RIGHT RADIAL; BG TIDAL VOLUME(mL) 450 mL; BG TOTAL HEMOGLOBIN 12.5 g/dL (12.0-18.0); BG VENT MODE VENT- PRVC; BG VENT RATE 20 set
[2020-03-22] MEDS: FAMOTIDINE 20MG TABLET PO SCH (09:20)
[2020-03-22] MEDS: ZINC SULFATE 220 MG ( 50 ) CAPSULE PO SCH (09:20)
[2020-03-22] MEDS: ASPIRIN 81MG EC TABLET PO SCH (09:20)
[2020-03-22] MEDS: GUAIFENESIN 600MG ER TABLET PO SCH ×2 (09:20→20:18)
[2020-03-22] MEDS: ASCORBIC ACID 500 MG TABLET PO SCH ×2 (09:20→21:11)
[2020-03-22] MEDS: DEXAMETHASONE 10 MG/ML VIAL IV SCH (09:20)
[2020-03-22] MEDS: ENOXAPARIN 30MG/0.3ML SYR SUBCUT SCH (09:21)
[2020-03-22 10:51] LABS: HEMATOCRIT. 34.8 % (36.0-48.0); HEMOGLOBIN. 11.1 g/dL (12.0-16.0); MEAN CORPUSCULAR HEMOGLOBIN 29.7 pg (28.0-32.0); MEAN CORPUSCULAR VOLUME 92.9 fL (81.0-99.0); MEAN PLATELET VOLUME 11.8 fl (7.4-10.4); PLATELET 200 x1000/uL (130-400); RED BLOOD CELL COUNT 3.74 mill/uL (4.2-5.4); RED CELL DISTRIBUTION WIDTH 15.5 % (11.6-14.6)
[2020-03-22] MEDS ORDERED: LIDOCAINE HCL/PF 1% 2ML VIAL ONE (11:11)
[2020-03-22 12:47] LABS: PLATELET ESTIMATE NORMAL
[2020-03-22] MEDS ORDERED: POTASSIUM CHLORIDE INJ 40 MEQ in DEXT 5% WATER 250 ML IV SCH (15:00)
[2020-03-23] VITALS (91 sets, daily range): BP systolic 87–156; BP diastolic 60–106
[2020-03-23] MEDS: IPRATROPIUM/ALBUTEROL 0.5-3(2.5)MG/3ML NEB HHN SCH ×6 (00:33→20:17)
[2020-03-23] MEDS: PROPOFOL 10MG/ML 100ML 100 ML IV PRN ×5 (03:44→20:49)
[2020-03-23] MEDS: LEVOTHYROXINE SODIUM 50MCG TABLET PO SCH (05:05)
[2020-03-23] MEDS: PIPERACILLIN/TAZOBACTAM 3.375 G in DEXT 5% WATER 100 ML IV SCH ×3 (05:05→22:02)
[2020-03-23] MEDS: ASPIRIN 81MG EC TABLET PO SCH (09:29)
[2020-03-23] MEDS: FAMOTIDINE 20MG TABLET PO SCH (09:29)
[2020-03-23] MEDS: GUAIFENESIN 600MG ER TABLET PO SCH ×2 (09:29→20:47)
[2020-03-23] MEDS: DEXAMETHASONE 10 MG/ML VIAL IV SCH (09:29)
[2020-03-23] MEDS: ZINC SULFATE 220 MG ( 50 ) CAPSULE PO SCH (09:29)
[2020-03-23] MEDS: ASCORBIC ACID 500 MG TABLET PO SCH ×2 (09:29→20:46)
[2020-03-23] MEDS: ENOXAPARIN 40MG/0.4ML SYR SUBCUT SCH (09:30)
[2020-03-23 14:06] LABS: HEMATOCRIT. 34.9 % (36.0-48.0); HEMOGLOBIN. 10.8 g/dL (12.0-16.0); MEAN CORPUSCULAR HEMOGLOBIN 29.3 pg (28.0-32.0); MEAN CORPUSCULAR VOLUME 94.6 fL (81.0-99.0); MEAN PLATELET VOLUME 11.3 fl (7.4-10.4); PLATELET 146 x1000/uL (130-400); RED BLOOD CELL COUNT 3.69 mill/uL (4.2-5.4); RED CELL DISTRIBUTION WIDTH 15.7 % (11.6-14.6)
[2020-03-23 14:16] LABS: CHLORIDE 114 mEq/L (98-107)
[2020-03-23 14:23] LABS: PHOSPHORUS 2.5 mg/dL (2.5-4.9)
[2020-03-23 17:23] LABS: PLATELET ESTIMATE NORMAL
[2020-03-24] VITALS (60 sets, daily range): BP systolic 95–176; BP diastolic 65–118
[2020-03-24] MEDS: IPRATROPIUM/ALBUTEROL 0.5-3(2.5)MG/3ML NEB HHN SCH ×4 (00:14→11:22)
[2020-03-24] MEDS: PROPOFOL 10MG/ML 100ML 100 ML IV PRN ×2 (00:18→01:11)
[2020-03-24 04:42] LABS: HEMATOCRIT. 34.8 % (36.0-48.0); MEAN CORPUSCULAR HEMOGLOBIN 29.4 pg (28.0-32.0); MEAN PLATELET VOLUME 11.6 fl (7.4-10.4); PLATELET 210 x1000/uL (130-400); RED BLOOD CELL COUNT 3.75 mill/uL (4.2-5.4); RED CELL DISTRIBUTION WIDTH 15.3 % (11.6-14.6)
[2020-03-24 05:00] LABS: CHLORIDE 115 mEq/L (98-107)
[2020-03-24] MEDS: LEVOTHYROXINE SODIUM 50MCG TABLET PO SCH (05:24)
[2020-03-24] MEDS ORDERED: PROPOFOL 10MG/ML 100ML 100 ML IV PRN (05:30)
[2020-03-24 08:11] LABS: PLATELET ESTIMATE NORMAL
[2020-03-24 08:17] LABS: BG BASE EXCESS -0.3 mmol/L (-2.0-2.0); BG CARBOXYHEMOGLOBIN 0.3 % (0.5-1.5); BG DEOXYHEMOGLOBIN 1.6 % (0.0-5.0); BG HCO3 ACT 24.8 mmol/L (22.0-26.0); BG METHEMOGLOBIN 0.1 % (0.0-1.5); BG OXYGEN SATURATION 98.4 % (92.0-98.5); BG PCO2 42.4 mmHg (35.0-45.0); BG PH 7.385 (7.350-7.450); BG PO2 136.4 mmHg (75.0-100.0); BG SAMPLE SITE RIGHT RADIAL; BG TIDAL VOLUME(mL) 450 mL; BG TOTAL HEMOGLOBIN 10.9 g/dL (12.0-18.0); BG VENT MODE VENT- PRVC; BG VENT RATE 16 set
[2020-03-24] MEDS ORDERED: DEXAMETHASONE 10 MG/ML VIAL IV SCH (09:00)
[2020-03-24] MEDS: ENOXAPARIN 40MG/0.4ML SYR SUBCUT SCH (09:06)
[2020-03-24] MEDS: FAMOTIDINE 20MG TABLET PO SCH (09:06)
[2020-03-24] MEDS: GUAIFENESIN 600MG ER TABLET PO SCH ×2 (09:06→20:52)
[2020-03-24] MEDS: ASCORBIC ACID 500 MG TABLET PO SCH ×2 (09:06→20:52)
[2020-03-24] MEDS: ASPIRIN 81MG EC TABLET PO SCH (09:06)
[2020-03-24] MEDS: ZINC SULFATE 220 MG ( 50 ) CAPSULE PO SCH (09:10)
[2020-03-24 12:55] LABS: BG BASE EXCESS -0.3 mmol/L (-2.0-2.0); BG CARBOXYHEMOGLOBIN 0.3 % (0.5-1.5); BG DEOXYHEMOGLOBIN 4.4 % (0.0-5.0); BG FRACTION INSPIRED OXYGEN 40; BG HCO3 ACT 24.4 mmol/L (22.0-26.0); BG METHEMOGLOBIN 0.2 % (0.0-1.5); BG OXYGEN SATURATION 95.6 % (92.0-98.5); BG OXYHEMOGLOBIN 95.1 % (94.0-97.0); BG PCO2 39.9 mmHg (35.0-45.0); BG PH 7.404 (7.350-7.450); BG PO2 81.1 mmHg (75.0-100.0); BG PRESSURE SUPPORT 8; BG SAMPLE SITE RIGHT BRACHIAL; BG TOTAL HEMOGLOBIN 11.8 g/dL (12.0-18.0); BG VENT MODE VENT - CPAP
[2020-03-24] MEDS: PIPERACILLIN/TAZOBACTAM 3.375 G in DEXT 5% WATER 100 ML IV SCH ×2 (18:41→23:58)
[2020-03-25] VITALS (62 sets, daily range): BP systolic 115–172; BP diastolic 67–132
[2020-03-25] MEDS: IPRATROPIUM/ALBUTEROL 0.5-3(2.5)MG/3ML NEB HHN PRN (01:25)
[2020-03-25] MEDS: PIPERACILLIN/TAZOBACTAM 3.375 G in DEXT 5% WATER 100 ML IV SCH ×3 (05:32→18:05)
[2020-03-25] MEDS: LEVOTHYROXINE SODIUM 50MCG TABLET PO SCH (05:32)
[2020-03-25 06:49] LABS: BASOPHILS % 0.2 % (0.0-2.0); EOSINOPHILS % 1.8 % (0.0-5.0); HEMATOCRIT. 33.7 % (36.0-48.0); HEMOGLOBIN. 10.6 g/dL (12.0-16.0); LYMPHOCYTES % 8.2 % (20.0-50.0); MEAN CORPUSCULAR HEMOGLOBIN 29.7 pg (28.0-32.0); MEAN CORPUSCULAR VOLUME 94.7 fL (81.0-99.0); MONOCYTES % 11.7 % (2.0-8.0); NEUTROPHILS % 78.1 % (40.0-76.0); RED BLOOD CELL COUNT 3.56 mill/uL (4.2-5.4); RED CELL DISTRIBUTION WIDTH 15.5 % (11.6-14.6)
[2020-03-25 07:06] LABS: CHLORIDE 111 mEq/L (98-107)
[2020-03-25] MEDS ORDERED: DEXTROSE 50% WATER 50ML SYRINGE IV NR (08:38)
[2020-03-25 08:39] LABS: MEAN PLATELET VOLUME 12.2 fl (7.4-10.4); PLATELET 261 x1000/uL (130-400)
[2020-03-25] MEDS: ASPIRIN 81MG EC TABLET PO SCH (08:52)
[2020-03-25] MEDS: ASCORBIC ACID 500 MG TABLET PO SCH ×2 (08:52→21:03)
[2020-03-25] MEDS: GUAIFENESIN 600MG ER TABLET PO SCH ×2 (08:52→20:24)
[2020-03-25] MEDS: FAMOTIDINE 20MG TABLET PO SCH (08:52)
[2020-03-25] MEDS: ZINC SULFATE 220 MG ( 50 ) CAPSULE PO SCH (08:53)
[2020-03-25] MEDS: ENOXAPARIN 40MG/0.4ML SYR SUBCUT SCH (08:54)
[2020-03-25] MEDS ORDERED: DEXAMETHASONE 4MG/ML 1ML VIAL IV SCH (09:00)
[2020-03-25] MEDS: ALBUTEROL 6.7GM HFA INHALER ORI SCH ×2 (13:02→18:06)
[2020-03-25] MEDS: CLONIDINE 0.1MG TABLET PO PRN (13:30)
[2020-03-25] MEDS: VANCOMYCIN HCL 1000 MG/20 ML ORAL PO SCH (18:05)
[2020-03-26] VITALS (29 sets, daily range): BP systolic 126–167; BP diastolic 81–103
[2020-03-26] MEDS: PIPERACILLIN/TAZOBACTAM 3.375 G in DEXT 5% WATER 100 ML IV SCH ×5 (00:41→23:15)
[2020-03-26] MEDS: ALBUTEROL 6.7GM HFA INHALER ORI SCH ×5 (00:42→23:25)
[2020-03-26] MEDS: VANCOMYCIN HCL 1000 MG/20 ML ORAL PO SCH ×5 (03:09→23:20)
[2020-03-26 05:56] LABS: CHLORIDE 101 mEq/L (98-107)
[2020-03-26 05:58] LABS: BASOPHILS % 0.2 % (0.0-2.0); EOSINOPHILS % 1.8 % (0.0-5.0); HEMATOCRIT. 39.3 % (36.0-48.0); HEMOGLOBIN. 12.7 g/dL (12.0-16.0); LYMPHOCYTES % 8.7 % (20.0-50.0); MEAN CORPUSCULAR HEMOGLOBIN 29.9 pg (28.0-32.0); MEAN CORPUSCULAR VOLUME 92.8 fL (81.0-99.0); MEAN PLATELET VOLUME 11.2 fl (7.4-10.4); MONOCYTES % 8.7 % (2.0-8.0); NEUTROPHILS % 80.6 % (40.0-76.0); PLATELET 234 x1000/uL (130-400); RED BLOOD CELL COUNT 4.24 mill/uL (4.2-5.4); RED CELL DISTRIBUTION WIDTH 15.1 % (11.6-14.6)
[2020-03-26] MEDS: LEVOTHYROXINE SODIUM 50MCG TABLET PO SCH (06:32)
[2020-03-26] MEDS: ZINC SULFATE 220 MG ( 50 ) CAPSULE PO SCH (09:16)
[2020-03-26] MEDS: ASCORBIC ACID 500 MG TABLET PO SCH ×2 (09:16→21:41)
[2020-03-26] MEDS: FAMOTIDINE 20MG TABLET PO SCH (09:16)
[2020-03-26] MEDS: ASPIRIN 81MG EC TABLET PO SCH (09:17)
[2020-03-26] MEDS: ENOXAPARIN 40MG/0.4ML SYR SUBCUT SCH (09:17)
[2020-03-26] MEDS: GUAIFENESIN 600MG ER TABLET PO SCH ×2 (09:20→21:41)
[2020-03-26] MEDS: CLONIDINE 0.1MG TABLET PO PRN ×2 (11:12→23:19)
[2020-03-27 04:00] VITALS: BP 128/95
[2020-03-27] MEDS: PIPERACILLIN/TAZOBACTAM 3.375 G in DEXT 5% WATER 100 ML IV SCH ×4 (05:45→23:27)
[2020-03-27] MEDS: VANCOMYCIN HCL 1000 MG/20 ML ORAL PO SCH ×4 (05:46→23:27)
[2020-03-27] MEDS: ALBUTEROL 6.7GM HFA INHALER ORI SCH ×4 (05:46→23:30)
[2020-03-27 08:00] VITALS: BP 137/90
[2020-03-27] MEDS: FAMOTIDINE 20MG TABLET PO SCH (09:00)
[2020-03-27] MEDS: ASPIRIN 81MG EC TABLET PO SCH (09:01)
[2020-03-27] MEDS: ASCORBIC ACID 500 MG TABLET PO SCH ×2 (09:01→20:51)
[2020-03-27] MEDS: LEVOTHYROXINE SODIUM 50MCG TABLET PO SCH (09:01)
[2020-03-27] MEDS: ZINC SULFATE 220 MG ( 50 ) CAPSULE PO SCH (09:01)
[2020-03-27] MEDS: GUAIFENESIN 600MG ER TABLET PO SCH ×2 (09:01→20:51)
[2020-03-27] MEDS: ENOXAPARIN 40MG/0.4ML SYR SUBCUT SCH (09:02)
[2020-03-27 12:00] VITALS: BP 141/98
[2020-03-27 16:00] VITALS: BP 147/105
[2020-03-27 20:00] VITALS: BP 164/110
[2020-03-27] MEDS: CLONIDINE 0.1MG TABLET PO PRN (20:51)
[2020-03-28] VITALS: BP 149/94
[2020-03-28 04:00] VITALS: BP 186/111
[2020-03-28] MEDS: PIPERACILLIN/TAZOBACTAM 3.375 G in DEXT 5% WATER 100 ML IV SCH (05:33)
[2020-03-28] MEDS: CLONIDINE 0.1MG TABLET PO PRN (05:33)
[2020-03-28] MEDS: VANCOMYCIN HCL 1000 MG/20 ML ORAL PO SCH (05:34)
[2020-03-28] MEDS: ALBUTEROL 6.7GM HFA INHALER ORI SCH (05:35)
[2020-03-28 08:00] VITALS: BP 139/104
[2020-03-28 08:17] LABS: BASOPHILS % 0.2 % (0.0-2.0); EOSINOPHILS % 0.9 % (0.0-5.0); HEMATOCRIT. 36.4 % (36.0-48.0); HEMOGLOBIN. 11.5 g/dL (12.0-16.0); LYMPHOCYTES % 7.2 % (20.0-50.0); MEAN CORPUSCULAR HEMOGLOBIN 29.1 pg (28.0-32.0); MONOCYTES % 8.4 % (2.0-8.0); NEUTROPHILS % 83.3 % (40.0-76.0); PLATELET 234 x1000/uL (130-400); RED BLOOD CELL COUNT 3.96 mill/uL (4.2-5.4); RED CELL DISTRIBUTION WIDTH 14.9 % (11.6-14.6)
[2020-03-28] MEDS: ZINC SULFATE 220 MG ( 50 ) CAPSULE PO SCH (08:39)
[2020-03-28] MEDS: LEVOTHYROXINE SODIUM 50MCG TABLET PO SCH (08:39)
[2020-03-28] MEDS: ASPIRIN 81MG EC TABLET PO SCH (08:39)
[2020-03-28] MEDS: GUAIFENESIN 600MG ER TABLET PO SCH (08:39)
[2020-03-28] MEDS: FAMOTIDINE 20MG TABLET PO SCH (08:40)
[2020-03-28] MEDS: ENOXAPARIN 40MG/0.4ML SYR SUBCUT SCH (08:40)
[2020-03-28] MEDS: ASCORBIC ACID 500 MG TABLET PO SCH (08:40)
[2020-03-28 09:59] LABS: CHLORIDE 105 mEq/L (98-107)
== END 2020-03-28 17:31 | disposition expired | DRG 720 ==
LOC: ER 00:56 → 7WST 05:18 → EDBEDREQ 05:23 → EDBEDREQSVC 05:23 → EDBEDREQTM 05:23 → ENRESERV 07:18 → ER 08:47 → MICUSO 03-20 13:38 → 7WST 03-26 12:22
PROVIDERS: ADMIT Internal Medicine; ATTEND Internal Medicine
PROC: 02HV33Z Insertion of Infusion Device into Superior Vena Cava, Percutaneous Approach (ICD-10-PCS; principal; 2020-03-20)
PROC: B548ZZA Ultrasonography of Superior Vena Cava, Guidance (ICD-10-PCS; 2020-03-20)
PROC: 5A1945Z Respiratory Ventilation, 24-96 Consecutive Hours (ICD-10-PCS; 2020-03-20)
PROC: 0BH17EZ Insertion of Endotracheal Airway into Trachea, Via Natural or Artificial Opening (ICD-10-PCS; 2020-03-20)
DX: A41.89 Other specified sepsis (principal); U07.1 COVID-19; J96.01 Acute respiratory failure with hypoxia; N17.0 Acute kidney failure with tubular necrosis; M62.82 Rhabdomyolysis; G92 Toxic encephalopathy; J12.89 Other viral pneumonia; J44.0 Chronic obstructive pulmonary disease with (acute) lower respiratory infection; I25.10 Atherosclerotic heart disease of native coronary artery without angina pectoris; F17.200 Nicotine dependence, unspecified, uncomplicated; E87.0 Hyperosmolality and hypernatremia; E43 Unspecified severe protein-calorie malnutrition; D64.9 Anemia, unspecified; J69.0 Pneumonitis due to inhalation of food and vomit; E03.9 Hypothyroidism, unspecified; I10 Essential (primary) hypertension; D72.810 Lymphocytopenia; E86.1 Hypovolemia; F03.90 Unspecified dementia, unspecified severity, without behavioral disturbance, psychotic disturbance, mood disturbance, and anxiety; F14.90 Cocaine use, unspecified, uncomplicated; I46.9 Cardiac arrest, cause unspecified; J44.9 Chronic obstructive pulmonary disease, unspecified; J96.02 Acute respiratory failure with hypercapnia; N17.9 Acute kidney failure, unspecified; R62.7 Adult failure to thrive; Y95 Nosocomial condition; K21.9 Gastro-esophageal reflux disease without esophagitis; Z99.81 Dependence on supplemental oxygen; Z98.2 Presence of cerebrospinal fluid drainage device
CPT/HCPCS: 31500; 36415; 36600; 71045; 71275; 80048; 80053; 80202; 80320; 81003; 82375; 82550; 82553; 82607; 82728; 82746; 82805; 82962; 83036; 83540; 83550; 83605; 83615; 83735; 83880; 84100; 84145; 84439; 84443; 84478; 84484; 85025; 85379; 86140; 87070; 87635; 87804; 93005; 93970; 94002; 94003; 94640; 99291; J0456; J1100; J1650; J2543; J2704; J3370; J3480; J3490; J7060; Q9967; G0480